=== PATIENT | male | born 1940 | race Caucasian/White ===

== ENCOUNTER 2016-06-27 20:57 | Inpatient (IN) | payer MEDICARE, OTHER ==
[~2016-06-27] VITALS: Ht 172.7 cm; Wt 59.0 kg
--- NOTE | ~2016-06-27 | O ---
[place], [place] OPERATIVE NOTE NAME: SUJEY ZAMBRANO SR UNIT #: [id number] ROOM: 427 DOCTOR: JODIE HOLLOWAY MD BIRTHDATE: [birth year] DOS: 06/29/2016 INDICATIONS: This is a 75-year-old patient who was presented with chief complaint of nausea, epigastric distress, abdominal pain. The patient with respiratory insufficiency, cough and cold symptomatology. PROCEDURE: Today's procedure part of investigation is panendoscopy plus biopsy plus photographic series. PREMEDICATION: Versed and Diprivan. SCOPE: Olympus forward-viewing gastroscope Q10 video. REPORT: After putting the patient in the left lateral position and after application of lubricant to the scope, the scope was introduced. Thereafter, under direct visualization, I advanced through the length of the esophagus without difficulty. Gastric pouch was entered. Antral ulceration was identified. Diffuse gastritis was seen. Duodenal bulb, second and third part within normal limits. The patient extubated, tolerated procedure well. IMPRESSION: Antral ulcer, gastritis, status post biopsy, small hiatal hernia. PLAN AND DISCUSSION: PPI therapy, soft diet. Follow up as outpatient for colonoscopy. JODIE HOLLOWAY MD CM:OPRECORD:OPERATIVE NOTE [id number] JODIE HOLLOWAY MD 06/29/16 0951 interface
[~2016-06-27 20:57] MED LIST: ADVAIR 250/501 EA INH; AMOXICILLIN500 MG PO; AMOXIL500 MG PO; AVPAK AZITHROM250 MG PO; AZITHROMYCIN250 MG PO; CARAFATE1 G1 PO; CIPRO250 MG PO; CLOTRIMAZOLE TR10 MG PO; DALI500T PO; DELTASONE10 MG PO; DUONEB 3 MG/3 ML3 M1 INH; ENSURE HIGH PR237 ML PO; FLOMAX0.4 MG PO; LYRICA100 M1 PO; MOBIC15 MG PO; MOTRIN800 MG PO; MULTIVITAMIN1 TA1 PO; MYCELEX VG; NORCO 5-325 TA1 EACH PO; PREDNISONE10 MG PO; PREDNISONE20 M1 PO; PRILOSEC40 M1 PO; PROAIR HFA0.09 MG/AC INH; PULMICORT RESP0.5 MG INH; ROBITUSSIN AC 110 ML PO; SYNTHROID25 MCG PO; ULTRAM50 MG PO; VITAMIN B121000 MC2 SL; ZOCOR40 MG PO; [UNRECOGNIZED DRUG - CODE] PO
[2016-06-27 21:31] VITALS: BP 126/67
[2016-06-27 22:09] LABS: BASO % 0.3 % (0.0-1.0); EOS % 0.3 % (1.0-4.0); HEMATOCRIT 36.9 % (42.0-52.0); HEMOGLOBIN 12.1 g/dl (14.0-18.0); IG # 0.1 10*3/uL (0.0-0.1); LYMPH # 1.9 10*3/uL (1.3-4.4); LYMPH % 12.5 % (27.0-41.0); MEAN CELL VOLUME 92.9 fl (80.0-94.0); MEAN CORPUSCULAR HGB 30.5 pg (27.0-31.0); MEAN CORPUSCULAR HGB CONC 32.8 g/dl (33.0-37.0); MEAN PLATELET VOLUME 9.1 fl (9.6-12.3); MONO # 0.9 10*3/uL (0.1-1.0); MONO % 5.7 % (3.0-9.0); NEUT # 12.1 10*3/uL (2.3-7.9); NEUT % 80.6 % (47.0-73.0); PLATELET COUNT AUTOMATED 468 10*3/uL (130-400); RED BLOOD COUNT 3.97 10*6/uL (4.50-5.90); RED CELL DISTRI WIDTH 16.3 % (0-14.5)
[2016-06-27 22:26] LABS: ALBUMIN 3.2 gm/dl (3.1-4.5); ALKALINE PHOSPHATASE 58 U/L (45-117); BILIRUBIN, TOTAL 0.3 mg/dl (0.2-1.0); BUN 17 mg/dl (7-24); CARBON DIOXIDE 32 mmol/L (21-32); CHLORIDE 101 mmol/L (98-107); EST GLOM FILT AFRICAN AMERICAN 53 ml/min; GLUCOSE 112 mg/dL (65-99); MAGNESIUM 2.6 mg/dL (1.5-2.1); POTASSIUM 3.9 mmol/L (3.5-5.1); SGOT/AST 15 IU/L (3-35); SGPT/ALT 19 U/L (12-78); SODIUM 143 mmol/L (136-145); TOTAL PROTEIN 7.3 gm/dL (6.4-8.2); TROPONIN I < 0.015 ng/ml (<0.045)
[2016-06-27 23:48] LABS: BILIRUBIN NEGATIVE (NEGATIVE); BLOOD 3+ (NEGATIVE); CLARITY SL CLOUDY (CLEAR); COLOR YELLOW (YELLOW); GLUCOSE NEGATIVE (NEGATIVE); KETONE NEGATIVE (NEGATIVE); LEUKO ESTERASE 1+ (NEGATIVE); NITRITE NEGATIVE (NEGATIVE); PH 5.5 (5.0-9.0); PROTEIN TRACE (NEGATIVE); SPECIFIC GRAVITY 1.015 (1.005-1.030); UROBILINOGEN 0.2 E.U./dl (0.2-1.0)
[2016-06-27 23:53] LABS: BACTERIA 2+; EPITHELIAL CELLS 0-2; RBC TNTC rbc/hpf (0-2); URINE REFLEX COMMENT YES (NO); WBC TNTC wbc/hpf (0-5)
[2016-06-28 01:04] VITALS: BP 130/60
[2016-06-28] MEDS ORDERED: NEXIUM40 MG PO (03:12)
[2016-06-28] MEDS ORDERED: PROAIR HFA8.5 GM INH (03:13)
[2016-06-28] MEDS ORDERED: SPIRIVA -- 3018 MCG INH (03:14)
[2016-06-28] MEDS ORDERED: VIT D (03:15)
[2016-06-28] MEDS ORDERED: OXYGEN NAS (03:16)
[2016-06-28 06:49] LABS: CKMB 0.7 ng/ml (0.5-3.6); CPK 42 U/L (39-308); TROPONIN I < 0.015 ng/ml (<0.045)
[2016-06-28 07:56] LABS: BASO # 0.1 10*3/uL (0.0-0.1); BASO % 0.4 % (0.0-1.0); EOS # 0.1 10*3/uL (0.0-0.4); EOS % 0.8 % (1.0-4.0); HEMATOCRIT 32.7 % (42.0-52.0); HEMOGLOBIN 10.6 g/dl (14.0-18.0); IG # 0.1 10*3/uL (0.0-0.1); LYMPH % 7.2 % (27.0-41.0); MEAN CELL VOLUME 94.5 fl (80.0-94.0); MEAN CORPUSCULAR HGB 30.6 pg (27.0-31.0); MEAN CORPUSCULAR HGB CONC 32.4 g/dl (33.0-37.0); MEAN PLATELET VOLUME 9.3 fl (9.6-12.3); MONO # 0.6 10*3/uL (0.1-1.0); MONO % 4.2 % (3.0-9.0); NEUT # 12.1 10*3/uL (2.3-7.9); NEUT % 86.7 % (47.0-73.0); PLATELET COUNT AUTOMATED 410 10*3/uL (130-400); RED BLOOD COUNT 3.46 10*6/uL (4.50-5.90); RED CELL DISTRI WIDTH 16.7 % (0-14.5); WHITE BLOOD COUNT 13.9 10*3/uL (4.8-10.8)
[2016-06-28 08:00] VITALS: BP 128/62
[2016-06-28 08:12] LABS: ALBUMIN 2.6 gm/dl (3.1-4.5); BILIRUBIN, TOTAL 0.2 mg/dl (0.2-1.0); POTASSIUM 3.9 mmol/L (3.5-5.1); TOTAL PROTEIN 6.1 gm/dL (6.4-8.2)
[2016-06-28 12:00] VITALS: BP 117/52
[2016-06-28 12:13] LABS: CPK 48 U/L (39-308)
[2016-06-28 12:14] LABS: CKMB 0.8 ng/ml (0.5-3.6)
[2016-06-28 12:15] LABS: TROPONIN I < 0.015 ng/ml (<0.045)
[2016-06-28 16:09] VITALS: BP 105/55
[2016-06-28 17:54] LABS: CKMB 1.1 ng/ml (0.5-3.6); CPK 53 U/L (39-308)
[2016-06-28 17:56] LABS: TROPONIN I < 0.015 ng/ml (<0.045)
[2016-06-28 19:52] VITALS: BP 109/51
[2016-06-29] VITALS (9 sets, daily range): BP systolic 126–143; BP diastolic 59–77
[2016-06-29 07:02] LABS: HEMATOCRIT 32.6 % (42.0-52.0); HEMOGLOBIN 10.3 g/dl (14.0-18.0); MEAN CELL VOLUME 96.7 fl (80.0-94.0); MEAN CORPUSCULAR HGB 30.6 pg (27.0-31.0); MEAN CORPUSCULAR HGB CONC 31.6 g/dl (33.0-37.0); MEAN PLATELET VOLUME 9.3 fl (9.6-12.3); PLATELET COUNT AUTOMATED 413 10*3/uL (130-400); RED BLOOD COUNT 3.37 10*6/uL (4.50-5.90); RED CELL DISTRI WIDTH 17.2 % (0-14.5); WHITE BLOOD COUNT 12.8 10*3/uL (4.8-10.8)
[2016-06-29 07:26] LABS: BURR CELLS FEW; LYMPHOCYTE # 0.3 10*3/uL (1.3-4.4); MONOCYTE # 0.3 10*3/uL (0.1-1.0); NEUTROPHIL # 12.3 10*3/uL (2.3-7.9); NEUTROPHILS 96 % (47-73); PLATELET SUFFICIENCY HIGH (NORMAL); TOTAL CELLS COUNTED 100 #CELLS
[2016-06-29 07:36] LABS: POTASSIUM 4.6 mmol/L (3.5-5.1); PROTHROMBIN TIME 10.1 SECONDS (9.0-12.4)
[2016-06-29 07:43] LABS: FREE T4 0.88 ng/dl (0.76-1.46); THYROID STIM HORMONE (HS) 0.532 uIU/ml (0.358-4.75)
[2016-06-29 08:30] LABS: FOLIC ACID 7.63 ng/mL (>5.38)
[2016-06-30] VITALS: BP 136/75
[2016-06-30 06:48] LABS: HEMATOCRIT 34.8 % (42.0-52.0); HEMOGLOBIN 11.3 g/dl (14.0-18.0); MEAN CORPUSCULAR HGB 30.3 pg (27.0-31.0); MEAN CORPUSCULAR HGB CONC 32.5 g/dl (33.0-37.0); MEAN PLATELET VOLUME 9.2 fl (9.6-12.3); PLATELET COUNT AUTOMATED 387 10*3/uL (130-400); RED BLOOD COUNT 3.73 10*6/uL (4.50-5.90); RED CELL DISTRI WIDTH 17.5 % (0-14.5); WHITE BLOOD COUNT 17.4 10*3/uL (4.8-10.8)
[2016-06-30 06:50] LABS: MEAN CELL VOLUME 93.3 fl (80.0-94.0)
[2016-06-30 07:11] LABS: LYMPHOCYTE # 0.3 10*3/uL (1.3-4.4); MONOCYTE # 0.2 10*3/uL (0.1-1.0); NEUTROPHIL # 16.9 10*3/uL (2.3-7.9); NEUTROPHILS 97 % (47-73); PLATELET SUFFICIENCY NORMAL (NORMAL); TOTAL CELLS COUNTED 100 #CELLS
[2016-06-30 07:12] LABS: ROULEAUX SLIGHT
[2016-06-30 07:16] LABS: POTASSIUM 4.1 mmol/L (3.5-5.1)
[2016-06-30 07:23] LABS: ALBUMIN 2.8 gm/dl (3.1-4.5); PHOSPHOROUS 2.6 mg/dL (2.5-4.9)
[2016-06-30 08:00] VITALS: BP 146/75
== END 2016-06-30 12:30 | disposition short-term general hospital (02) | DRG 871 ==
LOC: ED 20:57 → 4E 23:58 → EDHOLD 23:58 → 4E 06-28 00:18
PROVIDERS: Hospitalist; Internal Medicine; Internal Medicine Nephrology; Nurse Practitioner Family
PROC: 0DB68ZX Excision of Stomach, Via Natural or Artificial Opening Endoscopic, Diagnostic (ICD-10-PCS; principal; 2016-06-29)
DX: A41.9 Sepsis, unspecified organism (principal); N17.0 Acute kidney failure with tubular necrosis; E43 Unspecified severe protein-calorie malnutrition; Z99.81 Dependence on supplemental oxygen; E86.0 Dehydration; J44.1 Chronic obstructive pulmonary disease with (acute) exacerbation; N30.01 Acute cystitis with hematuria; Z68.1 Body mass index [BMI] 19.9 or less, adult; R65.20 Severe sepsis without septic shock; E83.41 Hypermagnesemia; D47.3 Essential (hemorrhagic) thrombocythemia; R33.9 Retention of urine, unspecified; K29.70 Gastritis, unspecified, without bleeding; N40.0 Benign prostatic hyperplasia without lower urinary tract symptoms; G89.29 Other chronic pain; K21.9 Gastro-esophageal reflux disease without esophagitis; E78.5 Hyperlipidemia, unspecified; E03.9 Hypothyroidism, unspecified; K25.9 Gastric ulcer, unspecified as acute or chronic, without hemorrhage or perforation; M54.9 Dorsalgia, unspecified; K44.9 Diaphragmatic hernia without obstruction or gangrene; Z87.891 Personal history of nicotine dependence; Z83.3 Family history of diabetes mellitus; Z82.49 Family history of ischemic heart disease and other diseases of the circulatory system; Z80.1 Family history of malignant neoplasm of trachea, bronchus and lung; Z79.899 Other long term (current) drug therapy

== ENCOUNTER 2016-08-25 20:22 | Inpatient (IN) | payer MEDICARE, OTHER ==
[~2016-08-25] VITALS: Ht 172.7 cm; Wt 45.1 kg
--- NOTE | ~2016-08-25 | PR ---
[place], [place] PROGRESS NOTE NAME: SUJEY ZAMBRANO SR UNIT #: [id number] ROOM: 401 DOCTOR: KIMBERLY LESTER MD,MAURA BIRTHDATE: [birth year] DOS: 09/02/2016 SUBJECTIVE: He has been noted without any acute complaints at this time, resting on his chair comfortably sitting. OBJECTIVE: VITAL SIGNS: Shows normal temperature, respiratory rate 20, heart rate 92, and blood pressure 127/53. Pulse oxygen saturation of the patient recorded as 95% saturation on 2 L nasal cannula. HEENT: No acute change. NECK: Supple. CARDIOVASCULAR SYSTEM: S1, S2 audible. LUNGS: Noted without any wheezing or crackles at the present time. ABDOMEN: Soft, nontender. LABORATORY DATA: CBC today: WBC count 19.9, hemoglobin 9.8, hematocrit 30.2. Platelet count was 529,000. The vancomycin trough level 18.9. Digoxin level 1.13. IMPRESSION: 1. The patient with resolving acute hypoxic respiratory failure, acute exacerbation of chronic obstructive pulmonary disease, progressively. 2. Resolving acute pneumonia with methicillin-resistant Staphylococcus aureus. 3. Leukocytosis. The patient was still noted. PLAN OF TREATMENT: Continuation of the bronchodilators, oxygen supplementation dose of steroids has been decreased to 40 mg daily. Monitoring leukocytosis. Continue physical therapy. penitentiary facility placement was recommended the patient prior to final home discharge. MAURA HARRIS MD CM:PNTRANS [phone] MAURA LESTER MD 09/02/162151 interface
--- NOTE | ~2016-08-25 | PR ---
[place], [place] PROGRESS NOTE NAME: SUJEY ZAMBRANO SR UNIT #: [id number] ROOM: [facility] DOCTOR: KIMBERLY LESTER MD,MAURA BIRTHDATE: [birth year] DOS: 08/28/2016 PULMONARY PROGRESS NOTE SUBJECTIVE: He has been comfortably resting, still noted with wheezing, coughing and chest congestion. The patient was not reported with any symptoms of chest pain or abdominal pain. Continue oxygen supplementation as well. Cough has been noted for this patient with only small amount of sputum expectoration. OBJECTIVE: VITAL SIGNS: For the patient which were recorded shows the temperature of the patient noted as normal. The respiratory rate of the patient recorded as 22, heart rate 88, blood pressure 150/80. Pulse oxygen saturation recorded on 3 L nasal cannula as 99%-96% saturation. HEENT: Examination shows head was atraumatic. Eyes nonicterus. NECK: Supple. CARDIOVASCULAR: S1, S2 audible. LUNGS: Showed diffuse expiratory wheezing with scattered crackles of the lung were still heard. ABDOMEN: Soft, nontender, bowel sounds present. LABORATORY DATA: CBC this morning, hemoglobin 7.1, hematocrit 22.2, WBC count normal, platelet count was normal. The BMP of patient this morning shows glucose 180, BUN 9, creatinine was 0.57. Sodium 146, potassium 3.3. AST, ALT were noted mildly increased and abnormal. Prealbumin noted as 11. IMPRESSION: 1. The patient with ongoing acute hypoxic respiratory failure. 2. Lactic acidosis of the patient was also noted. 3. Acute exacerbation of chronic obstructive pulmonary disease. 4. Methicillin-resistant Staphylococcus aureus pneumonia, the patient was also isolated with current sputum cultures as methicillin-resistant Staphylococcus aureus. 5. Overall debility of the patient and moderate to severe protein-calorie malnutritional status as well. PLAN OF TREATMENT: Optimize nutritional status. Antibiotic spectrum was changed based on the current culture results. We will continue vancomycin, discontinue other antibiotics today. Monitor chest x-ray closely. Possible consideration of bronchoscopy for the patient in the next couple of days as well. Usual care, other supportive therapy, plan of management. No changes in bronchodilators administration and steroids. Continue oxygen supplementation. [place], [place] PROGRESS NOTE NAME: SUJEY ZAMBRANO SR UNIT #: [id number] ROOM: [facility] DOCTOR: MAURA DUQUE MD BIRTHDATE: [birth year] MAURA HARRIS MD CM:PNTRANS [phone] MAURA LESTER MD 08/29/16 0407 interface
--- NOTE | ~2016-08-25 | PROC NOTE ---
[place], [place] PROCEDURE NOTE NAME: SUJEY ZAMBRANO SR UNIT #: [id number] ROOM: 401 DOCTOR: KIMBERLY LESTER MD,MAURA BIRTHDATE: [birth year] DOS: 08/30/2016 PROCEDURE: Fiberoptic bronchoscopy. PREOPERATIVE DIAGNOSIS: The patient with persistent coughing, chest congestion with ineffective sputum expectoration. POSTOPERATIVE DIAGNOSIS: Removal of multiple plugs in the mucus with findings of pneumonia. PROCEDURE DESCRIPTION: Informed consent obtained for the patient. The patient brought to the OR and placed in supine position. Conscious sedation administered by the Anesthesia Department. After achieving appropriate sedation, airway introduced into the mouth. Bronchoscope advanced into the airway into laryngeal area. Epiglottis and vocal cords were seen. Bronchoscope advanced into the vocal cord and tracheal lumen. Tracheal lumen noted with moderate amount of thick mucopurulent secretion, which was suctioned out at jennifer level. Jennifer noted sharp. Right upper, right middle, right lower, left upper, lingular lower lobe bronchi were all noted impacted with thick mucoid secretion with purulent secretion. All secretions suctioned out clear. Endobronchial tree were noted patent after that. No endobronchial obstructive lesions noted. Bronchial washings sent for the appropriate culture. Postoperative findings were discussed in detail with the patient and family members. MAURA HARRIS MD CM:PROCNOTE:PROCEDURE NOTE [id number] MAURA LESTER MD
--- NOTE | ~2016-08-25 | PR ---
[place], [place] PROGRESS NOTE NAME: SUJEY ZAMBRANO SR UNIT #: [id number] ROOM: 401 DOCTOR: KIMBERLY LESTER MD,MAURA BIRTHDATE: [birth year] DOS: 09/01/2016 PULMONARY PROGRESS NOTE SUBJECTIVE: He has been noted with significant reduction and improvement of the respiratory symptoms at this time after bronchoscopy. Coughing has been improving significantly. Denied symptoms of chest pain. Shortness of breath has been gradually resolving. OBJECTIVE: VITAL SIGNS: Showed normal temperature, respiratory rate 20, heart rate of 90, blood pressure 122/66. The pulse oxygen saturation of the patient noted on 2-1/2 liters nasal cannula 97% saturation. HEENT: Examination shows no acute change. NECK: Supple. CARDIOVASCULAR SYSTEM: S1, S2 audible. LUNGS: Noted without any wheezing or crackles at the present time. ABDOMEN: Soft, nontender. LABORATORY DATA: CMP today, glucose 187 with normal BUN and creatinine. Culture of the bronchial washing was noted as heavy growth of MRSA for this patient. CBC today: WBC count 17.2, hemoglobin 10.4, hematocrit 32.8, platelet count was recorded as 622,000. One view chest x-ray of the patient that was done yesterday for this patient shows changes of COPD for the patient with resolving acute pulmonary infiltration pneumonia in the lower lungs. IMPRESSION: 1. The patient with progressive resolution and improvement ____ the respiratory status with resolving acute pneumonia with methicillin-resistant Staphylococcus aureus. 2. Acute hypoxic respiratory failure, improving as well. 3. Severe debility, muscle deconditioning as well as the protein calorie malnutrition status. PLAN OF TREATMENT: Continue antibiotics for the patient, bronchodilators, oxygen supplementation and other therapies as in progress. Continue nutritional support for the patient and optimize accordingly. Reduce the dose of Solu-Medrol for the patient 40 mg b.i.d. ____ dose as well. Other supportive therapy, plan of management. Possible consideration may be considered for the alf facility placement because of the significant severe debility and continuation of antibiotic administration. Keep the patient off the Daliresp because of the weight loss, most likely associated with that. Other supportive plan of management and therapies. [place], [place] PROGRESS NOTE NAME: SUJEY ZAMBRANO SR UNIT #: [id number] ROOM: [facility] DOCTOR: MAURA DUQUE MD BIRTHDATE: [birth year] MAURA HARRIS MD CM:PNTRANS [phone] MAURA LESTER MD 09/02/16 0408 interface
--- NOTE | ~2016-08-25 | PR ---
[place], [place] PROGRESS NOTE NAME: JUAN MANUEL GOODRICHSUJEY Cachorro UNIT #: [id number] ROOM: 401 DOCTOR: JAZMINE PRESTON MD BIRTHDATE: [birth year] DOS: 08/31/2016 SUBJECTIVE: The patient was seen at his bedside with family in attendance today. He appears to be doing much better. He is eating with some appetite, and he denies any chest pain or dyspnea at rest. His cough has decreased. Review of his monitor shows that he remains in atrial fibrillation, but his heart rate is better controlled. Unfortunately, he remains on intravenous diltiazem. PHYSICAL EXAMINATION: VITAL SIGNS: Today, his pulse is 64 and irregularly irregular. Blood pressure is 118/60, he is afebrile. He weighs 45.1 kilograms with a body mass index is 15.1. NECK: Supple. He has no jugular distention. Carotids are full without bruits. CHEST: Shows that his breathing is unlabored. He had a few scattered crackles over his lower lungs, but no presacral edema or chest wall tenderness. HEART: An irregularly irregular rhythm. No murmurs or gallops are present. ABDOMEN: Soft and normoactive. EXTREMITIES: Showed no edema. IMPRESSION: 1. Multifocal bilateral pneumonia with severe sepsis -- improving. 2. Severe chronic obstructive pulmonary disease. 3. Bladder cancer with metastases. 4. Newly documented atrial fibrillation, probably triggered by his pneumonia in the setting of severe underlying lung disease. PLAN: We will again make efforts to wean him off of diltiazem intravenously and switch him to p.o. diltiazem. His CHADS-VASC score is 1, and therefore we will use antiplatelets therapies only to help prevent strokes. We thank the physicians of the hospitalist group for asking our advice regarding his care. [place], [place] PROGRESS NOTE NAME: JUAN MANUEL SUJEY UNIT #: [id number] ROOM: 401 DOCTOR: JAZMINE PRESTON MD BIRTHDATE: [birth year] JAZMINE PRESTON MD CM:PNTRANS [id number] JAZMINE PRESTON MD 09/01/16 0628 interface
--- NOTE | ~2016-08-25 | CON ---
[place], [place] REPORT OF CONSULTATION NAME[id number] UNIT #: [id number] ROOM: 401 DOCTOR: MAURA DUQUE MD BIRTHDATE: [birth year] DOS: 08/27/2016 PULMONARY CONSULTATION EVALUATION AND MANAGEMENT REASON FOR CONSULTATION: Assess the patient for acute pneumonia for this patient and other respiratory problems. HISTORY OF PRESENT ILLNESS: This is a 75-year-old white male who has been known with past history of bladder cancer, recently diagnosed metastatic cancer, probably originating from the prostate undergoing chemotherapy by his medical oncologist, Dr. Brizuela in [place], [place]. The patient developed acute respiratory symptoms of chest congestion and cough for the past couple of weeks. He was also noticing increased coughing for the patient without any sputum expectoration and chest tightness. The patient was seen in the Emergency Room recently in another hospital. The patient has been given prednisone tapering dose and some other medications. The patient's symptoms had not improved and noted progressive worsening. He presented to the Emergency Room of [place] and hospitalized on 08/26/2016 for further medical management of current progressive respiratory symptom. The patient was still noted with coughing noted partial improvement from yesterday. He has been reporting symptoms of continuous wheezing as well as shortness breath with minimal exertion. Denies any symptoms of hemoptysis. The patient reported symptoms of pain, which is described in the left lower anterior chest wall. The patient worsened with deep breathing. The pain was described mild to moderate patient without any radiation and described recently. REVIEW OF SYSTEMS: CONSTITUTIONAL: Fatigue and tiredness noted with patient not sure about symptoms of fever or chills. EYES: Denies any burning, redness, or tenderness. EARS, NOSE, THROAT SYMPTOMS: Denies sore throat, hoarseness, otalgia, postnasal drainage. CARDIOVASCULAR: Denies anginal pain, edema or pain of lower extremities or palpitations. GASTROINTESTINAL: Denies dysphagia, nausea, vomiting, diarrhea, noted to decreased appetite for this patient as well as the weight loss of about 7 pounds in the past few weeks. GENITOURINARY SYMPTOMS: Denies dysuria or hematuria. SKIN: Denies lesions, rashes or ulcers. MUSCULOSKELETAL: Pain is described in different points of the patient, which is chronic without any acute flareup at this time. Denies any joint deformities. CENTRAL NERVOUS SYSTEM: Denies dizziness, headache or diplopia. Noted generalized weakness and fatigue. Remaining systems were reviewed with the patient, they were noted all negative. PAST MEDICAL HISTORY: Has been known with history of: 1. COPD. 2. History of bladder cancer. 3. Metastatic cancer of the prostate, possibly. [place], [place] REPORT OF CONSULTATION NAME: SUJEY ZAMBRANO SR UNIT #: [id number] ROOM: [facility] DOCTOR: MAURA DUQUE MD BIRTHDATE: [birth year] 4. Recent abnormal weight loss. 5. Hyperlipidemia. 6. Hypothyroidism. 7. Past tobacco use. 8. History of gastroesophageal reflux. PAST SURGICAL HISTORY: Noted. 1. TURP. 2. Surgery of the bladder cancer 5 years ago. SOCIAL HISTORY: The patient stated that he is , has 7 children. Smoking started at age of [age] years old pack of cigarettes per day until 2011. Denies any history of alcohol use or any illicit drug use. Denies rather alcohol dependence or illicit drug use. The patient drinks about 2-3 beers a day. FAMILY HISTORY: The patient's both parents have been . Mother from complication of lung cancer. Father of complications of myocardial infarction and diabetes mellitus. HOME MEDICATIONS: Listed as use of Pulmicort Respules, nebulized albuterol sulfate, ProAir HFA inhaler, calcium carbonate, vitamin D, vitamin B12, Nexium, fentanyl patches 50 mcg, Advair 250/50, levothyroxine, Remeron, multivitamin, OxyContin, oxygen supplementation bedtime 2 liters, Lyrica, ____, simvastatin, Carafate, Flomax, Spiriva, recent prescription of prednisone 30 mg b.i.d. and Compazine p.r.n. use. DRUG ALLERGIES: Reported no known drug allergies. MEDICATIONS: Current administered medications were noted use of Mucinex, vitamin D, ____, Protonix, levothyroxine, Remeron, simvastatin, Flomax, Carafate, albuterol sulfate, Dulera, Compazine, multivitamin, Lovenox for DVT prophylaxis, Levaquin, vancomycin, Zosyn, albumin, and other p.r.n. medications administration. PHYSICAL EXAMINATION: GENERAL: A [id number] white male currently noted to be sitting on the bed, using oxygen supplementation nasal cannula with it appearing cachexia. Height of 5 feet 8 inches, weight of 99 pounds, BMI 15.1. VITAL SIGNS: For the patient, which has been recorded showed the temperature noted as normal, respiratory rate 18-22, heart rate of 93-131 on admission, blood pressure 120/46-117/55. Pulse oxygen saturation noted on 2 liters nasal cannula 97% saturation noted. Oxygen saturation noted at 84% on room air on admission. HEENT: Loss of muscle mastication. Neck was supple. Head was atraumatic. Eyes nonicterus. Oral mucosa was moist. CARDIOVASCULAR: S1, S2 audible. LUNGS: Diffuse expiratory wheezing, scattered crackles of the lung mid to lower portion of the lungs bilaterally. ABDOMEN: Soft, flat, nontender. CENTRAL NERVOUS SYSTEM: Loss of muscle mass for the patient noted without any [place], [place] REPORT OF CONSULTATION NAME: SUJEY ZAMBRANO SR UNIT #: [id number] ROOM: [facility] DOCTOR[facility] BIR[facility] [birth year] focal deficits. Cranial nerves 2-12 intact. MUSCULOSKELETAL: Showed no deformities. SKIN: Showed no lesions or rashes. LABORATORY DATA: The BMP that was done just on admission glucose 116, BUN and creatinine were normal. CBC 08/25/2016 WBC count 3.4, hemoglobin 8.6, hematocrit ____, platelet count 490,000. The lactic acid was noted initially 4.2. Follow up lactic acid was done as 2.5 on the . CBC on , WBC count normal at 8.6, hemoglobin 8, hematocrit 25.5, platelet count 533,000. PT/PTT 08/24, and was normal. CMP: Glucose 231. The patient's BUN and creatinine normal on 08/26. CBC this morning, hemoglobin 7.1, hematocrit 22.0, platelet count 508,000, WBC count were normal. The platelet count for the patient was recorded as 508,000. CMP of the patient this morning, BUN 11, creatinine 0.47, glucose 141. The phosphorus noted 1.7. AST 64, ALT 113. Albumin 2.5. Calcium 6.4 uncorrected with the albumin. The culture of the sputum for the patient shows moderate growth of gram-positive cocci, many white blood cells with moderate epithelial cells, moderate gram-positive cocci in pairs and chains was noted. The cultures of the blood for this patient on the to assess the patient shows no bacterial growth. Troponin for patient on admission and on 3 sets were all noted as normal. The chest x-ray that was done on this admission on 08/25/2016 was noted with hyperinflation with some patchy infiltration of the lungs were noted. CT of the chest that was done was personally reviewed shows a large area of consolidation with associated small pleural fluid in the procedure subsegment of the left lower lobe was noted. Other patchy infiltration noted in the superior subsegment of the right lower lobe as well as in the left upper lobe and other infiltration noted posterior subsegment of the left upper lobe as well. Changes of centrilobular emphysema was also noted. There was no evidence of pulmonary embolism. The mediastinal windows for this patient were reviewed for this patient as well and does not show any significant lymphadenopathy in the mediastinum except mild enlargement of left side lymph node noted could be reactive. Another area of infiltration and consolidation noted in the medial subsegment of the right lower lobe. IMPRESSION: 1. The patient who had been currently admitted to the hospital with known history of metastatic cancer, most likely originating from the bladder for the patient confirmation was not clearly known. Currently, has reported and admitted to the hospital, multilobar pneumonia, area of consolidation with possibility of aspiration to be considered because of the current occasion noted. CT scan of the chest as a possibility with gram-positive cocci. Gram-positive cocci isolation has been noted with sputum differential would be considered as MRSA streptococcal pneumonia or enterococcus species. 2. Progressive anemia which has been noted without any active bleeding most likely resulting from intravenous fluid supplementation resulting in volume diffusion. 3. The patient with acute exacerbation of chronic obstructive pulmonary disease. 4. Acute hypoxic respiratory failure secondary to the above. 5. History of past nicotine use as well. 6. A very small left-sided pleural fluid was also noted related to acute [place], [place] REPORT OF CONSULTATION NAME: SUJEY ZAMBRANO SR UNIT #: [id number] ROOM: [facility] DOCTOR: KIMBERLY LESTER MD,MAURA AREVALOTE: 42 bacterial pneumonia on the left side. 7. Abnormal weight loss and may be related to underlying metastatic malignancy. PLAN OF TREATMENT: 1. Monitor culture results. Continue current broad spectrum intravenous antibiotics. History of suspected based on the culture results if necessary, consider bronchoscopy. Initial workup for the patient for aspiration. 2. Severe protein-calorie malnutrition was also suspected for this patient as well. 3. Significant weight loss ____ well known side effect. 4. The ____ has been discontinued as well. Follow up chest x-ray closely. Continuation of the other treatment therapy, plan of management and care. Usual treatments. Thanks for allowing me to participate in the care of this patient. MAURA HARRIS MD CM:CONSTR:REPORT OF CONSULTATION 1456 08/28/16 1301 interface
--- NOTE | ~2016-08-25 | PR ---
[place], [place] PROGRESS NOTE NAME: SUJEY ZAMBRANO SR [facility] [id number] UNIT #: [id number] ROOM: 401 DOCTOR: JAZMINE PRESTON MD BIRTHDATE: [birth year] DOS: 09/01/2016 CARDIOLOGY PROGRESS NOTE SUBJECTIVE: The patient was seen at his bedside today with multiple family members in attendance. He continues to have periods of atrial fibrillation with rapid ventricular response. He seems more tired today, but otherwise seems clinically stable. PHYSICAL EXAMINATION: VITAL SIGNS: His pulse is 100 and irregularly irregular. Blood pressure is 118/60. He is afebrile. NECK: Supple. He has no jugular distention. Carotids are full. LUNGS: Respirations are unlabored. He does have bilateral crackles. HEART: Has an irregularly irregular rhythm. He has no murmurs or gallops. ABDOMEN: Benign. EXTREMITIES: Showed no edema. As noted previously, I reviewed his echocardiogram on 08/28/2016. It showed normal left ventricular size, thickness, wall motion and systolic function with an ejection fraction of 70%. Left ventricular filling pattern was normal for his age. The right atrium and left atrium were both moderately dilated. He did have Doppler evidence for mild pulmonary hypertension. Today his hemoglobin is 10.4, white count is 17,200, platelet count is 620,000. Sodium is 145, potassium 4.0, BUN 24, creatinine 0.75. I think that as long as he has an active infection, his heart rate will be difficult to control. I will increase his diltiazem by mouth today and continue his IV diltiazem as needed to control his heart rate. We will continue to make adjustments on a daily basis. We thank the hospitalist group for asking our advice regarding his care. JAZMINE PRESTON MD CM:PNTRANS [phone] JAZMINE PRESTON MD 09/02/16 0506 interface
--- NOTE | ~2016-08-25 | PR ---
[place], [place] PROGRESS NOTE NAME: SUJEY ZAMBRANO SR UNIT #: [id number] ROOM: 401 DOCTOR: MAURA DUQUE MD BIRTHDATE: [birth year] DOS: 08/30/2016 PULMONARY PROGRESS NOTE SUBJECTIVE: He has been n.p.o. past midnight for bronchoscopy. The patient was continued on previous antibiotics as well. The coughing, chest congestion of the patient remains the same without any changes as of yesterday's exam. OBJECTIVE: VITAL SIGNS: Showed normal temperature, respiratory rate of 16, heart rate of 128 earlier, currently noted 63. The temperature of the patient noted as normal. HEENT: Examination shows head was atraumatic. Eyes nonicterus. NECK: Supple. CARDIOVASCULAR SYSTEM: S1, S2 audible. LUNGS: Noted with moderate decreased breath sounds of the patient with wheezing for the patient was noted, scattered crackles of the lungs bilaterally. ABDOMEN: Soft, nontender. LABORATORY DATA: CMP 08/30/2016, BUN of 19, creatinine was normal, glucose 172. CBC of the patient of 08/30/2016, WBC count 11.5, hemoglobin 7.9, hematocrit 24.6, platelet count 668,000. Troponin for the patient noted as normal. PT/PTT yesterday was noted as normal. IMPRESSION: 1. The patient who has been currently treated in the hospital was noted with ongoing acute bilateral pneumonia for this patient with persistent chest congestion, coughing not resolving with current maximal medical therapy. 2. Acute hypoxic respiratory failure as well. 3. Methicillin-resistant Staphylococcus aureus for this patient's pneumonia as well. PLAN OF TREATMENT: Continue with the current plan of management. Continue the antibiotics based on the current culture results of MRSA. If any changes, modification of treatment necessary after bronchoscopy ordered accordingly. Anemia has been already addressed by the primary care attending blood transfusion. [place], [place] PROGRESS NOTE NAME: SUJEY ZAMBRANO SR UNIT #: [id number] ROOM: 401 DOCTOR: MAURA DUQUE MD BIRTHDATE: [birth year] MAURA HARRIS MD CM:PNTRANS [phone] MAURA LESTER MD 08/31/16 0605 interface
--- NOTE | ~2016-08-25 | PR ---
[place], [place] PROGRESS NOTE NAME: SUJEY ZAMBRANO SR UNIT #: [id number] ROOM: 401 DOCTOR: MAURA DUQUE MD BIRTHDATE: [birth year] DOS: 09/04/2016 PULMONARY PROGRESS NOTE SUBJECTIVE: He has been still noted with some cough without any sputum expectoration. Denies symptoms of chest pain. Denies any wheezing. Physical therapy has been continued for this patient. OBJECTIVE: VITAL SIGNS: For the patient which were recorded shows the temperature of the patient recorded as normal. The respiratory rate of the patient recorded as 18, heart rate of 96. The blood pressure was recorded at 123/96. Pulse oxygen saturation with nasal cannula for the patient was noted as 96% saturation on 2 L nasal cannula. HEENT: Examination shows no acute change. NECK: Supple. CARDIOVASCULAR: S1, S2 audible. LUNGS: The patient was noted without any wheeze or crackles at this time. Breaths are noted mild to moderately decreased bilaterally. ABDOMEN: Soft, nontender. IMPRESSION: 1. The patient who has been currently noted with acute methicillin-resistant Staphylococcus aureus pneumonia for this patient with acute hypoxic respiratory failure with progressive resolution and improvement in the respiratory symptoms of the patient has been continued. The pneumonia has been improving clinically and radiologically. 2. Overall significant debility for this patient secondary to current acute illness was noted as well. PLAN OF TREATMENT: No changes from the pulmonary standpoint. Discharge planning for this patient to the home setting and/or penitentiary facility is still pending. Other supportive plan and management to be continued. No other change in treatment to be done. Once the patient gets discharged, he will be advised about followup in the office. [place], [place] PROGRESS NOTE NAME: JUAN MANUEL SRSUJEY Cachorro UNIT #: [id number] ROOM: 401 DOCTOR: MAURA DUQUE MD BIRTHDATE: [birth year] MAURA HARRIS MD CM:PNTRANS [phone] MAURA LESTER MD 09/04/162233 interface
--- NOTE | ~2016-08-25 | PR ---
[place], [place] PROGRESS NOTE NAME: [id number] #: [id number] ROOM: 401 DOCTOR: KIMBERLY LESTER MD,MAURA BIRTHDATE: [birth year] DOS: 09/03/2016 SUBJECTIVE: He has been comfortably resting on his bed. The patient using oxygen supplementation gradual reduction and improvement in the respiratory symptoms. The patient has been noted. He has not been noted any ongoing acute complaints at this time. OBJECTIVE: VITAL SIGNS: Which were recorded showed normal temperature, respiratory rate 20, heart rate 101; blood pressure 141/67, pulse ox saturation was noted at 97% on 2 L nasal cannula. HEENT: Examination shows no acute change. NECK: Supple. CARDIOVASCULAR: S1, S2 audible. LUNGS: Noted [id number] decreased breath sounds bilaterally without any wheezing or crackles. ABDOMEN: Soft, nontender. IMPRESSION: 1. The patient with resolving acute exacerbation of chronic obstructive pulmonary disease with acute tracheobronchitis as well as MRSA pneumonia. 2. The patient with atrial fibrillation was noted at this time as well. PLAN OF TREATMENT: No changes from the pulmonary standpoint. Continue the patient's current therapy, plan of management at this time. Bronchodilators, oxygen supplementation and other treatment as previously in progress. Usual care. MAURA HARRIS MD CM:PNTRANS [phone] MAURA LESTER MD 09/03/16 1032 interface
--- NOTE | ~2016-08-25 | PR ---
[place], [place] PROGRESS NOTE NAME: SUJEY ZAMBRANO SR UNIT #: [id number] ROOM: 401 DOCTOR: MAURA DUQUE MD BIRTHDATE: [birth year] DOS: 08/31/2016 SUBJECTIVE: He has been sitting on the chair. The patient continues to show reduction and improvement of respiratory symptom. Coughing has improved significantly. Shortness of breath resolving. There were symptoms of further chest congestion. There were no symptoms of chest pain. OBJECTIVE: VITAL SIGNS: For the patient which was recorded shows the temperature noted normal. The respiratory rate of the patient recorded as 20, heart rate 92, blood pressure 127/53. The pulse oxygen saturation for the patient noted on 4 liters nasal cannula 98% saturation. HEENT: Shows no acute change. NECK: Supple. CARDIOVASCULAR SYSTEM: S1, S2 audible. LUNGS: The patient noted without any wheezing or crackles. At this time, breath sounds noted mildly diminished bilaterally. ABDOMEN: Soft, nontender. LABORATORY DATA: CBC this morning, WBC count 19.9, hemoglobin 9.9, hematocrit 30.2, platelet count was noted as 529,000. The vancomycin trough level is 18.9. Digoxin level 1.13, which is therapeutic. IMPRESSION: 1. The patient with resolving acute bilateral bacterial pneumonia for the patient current antibiotic administration. 2. Improving acute exacerbation of chronic obstructive pulmonary disease. 3. Improving acute hypercapnic and hypoxic respiratory failure. 4. History of nicotine abuse. PLAN OF TREATMENT: No change in the plan of management. Continue the patient's current therapy, plan of care as previously. Discharge planning has been started the patient for possible discharge in the home settings. In the meantime, continue steroids, bronchodilators, antibiotics for the MRSA pneumonia. The respiratory status has been resolving and improving current medical treatments. Other supportive therapy, plan of management and care. Usual therapies. [place], [place] PROGRESS NOTE NAME: SUJEY ZAMBRANO SR UNIT #: [id number] ROOM: 401 DOCTOR: MAURA DUQUE MD BIRTHDATE: [birth year] MAURA HARRIS MD CM:CRYSTALTRANS [phone] MAURA LESTER MD 09/04/16 1515 interface
--- NOTE | ~2016-08-25 | PR ---
[place], [place] PROGRESS NOTE NAME: SUJEY ZAMBRANO SR UNIT #: [id number] ROOM: [facility] DOCTOR: JAZMINE PRESTON MD BIRTHDATE: [birth year] DOS: 08/29/2016 HISTORY OF PRESENT ILLNESS: The patient was seen at his bedside today, 08/29/2016, for followup of his newly documented paroxysmal atrial fibrillation. Currently, he is in pain in his lower back. Review of his monitor shows that he has been in atrial fibrillation and flutter this morning again. He denies any change in his breathing and denies any palpitations. PHYSICAL EXAMINATION: VITAL SIGNS: Today, his pulse is 135 and irregularly irregular. Blood pressure is 103/70. He is afebrile. He weighs 45.1 kilograms with a body mass index of 15.1. NECK: Supple. He has no jugular distention. Carotids are full without bruits. LUNGS: Respirations are slightly labored. He did not have any coughing while I was in the room, his does have scattered crackles over both lungs, especially at the bases. HEART: Irregularly irregular rapid rhythm. No murmurs or gallops are present. ABDOMEN: Soft. EXTREMITIES: Showed no edema. LABORATORY DATA: As noted yesterday, his echocardiogram shows normal left ventricular size, wall thickness, regional wall motion and systolic function with an ejection fraction of 70%, diastolic pattern is normal for his age. He does have evidence for mild pulmonary hypertension with an estimated right ventricular systolic pressure between 45 and 50 mmHg. There is a small pericardial effusion and evidence for a left pleural effusion as well. The IVC was dilated consistent with elevated right atrial pressures. IMPRESSION: 1. Multifocal bilateral pneumonia with severe sepsis. 2. Severe chronic obstructive pulmonary disease. 3. Bladder cancer with metastases. 4. Newly documented atrial fibrillation, most likely this was triggered by his pneumonia in the setting of his severe disease. PLAN: Since the patient has had recurrent atrial fibrillation, we will start him on daily doses of diltiazem. His CHADS-VASC score remains 1, so we will continue antiplatelet therapies only. I thank his physicians for asking our advice regarding his care. [place], [place] PROGRESS NOTE NAME: SUJEY ZAMBRANO SR UNIT #: [id number] ROOM: 401 DOCTOR: JAZMINE PRESTON MD BIRTHDATE: [birth year] JAZMINE PRESTON MD CM:PNTRANS [phone] JAZMINE PRESTON MD 08/29/16 2141 interface
--- NOTE | ~2016-08-25 | PR ---
[place], [place] PROGRESS NOTE NAME: [id number] #: [id number] ROOM: 401 DOCTOR: MAURA DUQUE MD BIRTHDATE: [birth year] DOS: 08/29/2016 PULMONARY PROGRESS NOTE SUBJECTIVE: He has been still noted with significant chest congestion and coughing. He has not been able to expectorate much sputum. Shortness breath for the patient noted with wheezing intermittently as well. OBJECTIVE: VITAL SIGNS: For the patient which was recorded showed the temperature of the patient recorded as normal. The respiratory rate 20, heart rate of 56 this morning, blood pressure 103/70. HEENT: Examination shows no new change. NECK: Supple. CARDIOVASCULAR: S1, S2 is audible. LUNGS: Noted with moderate expiratory wheezing with crackles and decreased breath sounds in the lower portion of the lungs. ABDOMEN: Soft, nontender. LABORATORY DATA: Chest x-ray of the patient that was done this morning 2-view that I ordered for this patient was reviewed, shows improvement in aeration of the lungs was noted; however, the infiltration still noted in the left mid and lower lungs for the patient. Small right lower lobe infiltration noted. Pulmonary venous congestion marking noted, small left pleural fluid was visible. Vancomycin trough level was noted as 14.0, which is in therapeutic range. CMP of the patient of 08/29/2016 shows BUN normal, creatinine was normal, glucose 164. ALT of 86. CBC for the patient of 08/29/2016, WBC count 11.1, hemoglobin 8.1, hematocrit 26.2, platelet count of 655,000. IMPRESSION: 1. The patient with bilateral pulmonary infiltration was noted with pleural fluid. 2. Mildly abnormal liver function test as well. 3. Persistent symptoms of chest congestion and nonproductive cough as well. 4. Anemia as well. 5. Thrombocytosis. PLAN OF TREATMENT: Continue current antibiotics, oxygen supplementation, bronchodilators. The bronchoscopy was suggested for the patient for the reason of persistent nonproductive cough for the patient and also assess the acute pneumonia as well. The patient agreed for the consent and the procedure. The consent was obtained. The consent was also discussed with one of the patient's daughter who was present in the room with the patient. Both were agreeable for that. Procedure will be done in the morning. No other change in treatment otherwise will be needed. [place], [place] PROGRESS NOTE NAME: SUJEY ZAMBRANO SR UNIT #: [id number] ROOM: [facility] DOCTOR: MAURA DUQUE MD BIRTHDATE: [birth year] MAURA HARRIS MD CM:DELANO [id number] MAURA LESTER MD 08/30/16 0429 interface
[~2016-08-25 20:22] MED LIST changes: +NEXIUM40 MG PO; +OXYGEN NAS; +PROAIR HFA8.5 GM INH; +SPIRIVA -- 3018 MCG INH; +VIT D
[2016-08-25 20:27] VITALS: BP 99/46
[2016-08-25] MEDS ORDERED: MOBIC15 MG PO (20:37)
[2016-08-25] MEDS ORDERED: DURAGESIC 50 M50 MCG TD (20:42)
[2016-08-25] MEDS ORDERED: OXYCODONE HCL10 M1 PO (20:42)
[2016-08-25] MEDS ORDERED: REMERON15 M2 PO (20:42)
[2016-08-25] MEDS ORDERED: PREDNISONE20 M1 PO (20:43)
[2016-08-25 20:52] LABS: HEMOGLOBIN 8.6 g/dl (14.0-18.0); MEAN CELL VOLUME 97.8 fl (80.0-94.0); MEAN CORPUSCULAR HGB 31.2 pg (27.0-31.0); MEAN CORPUSCULAR HGB CONC 31.9 g/dl (33.0-37.0); MEAN PLATELET VOLUME 9.7 fl (9.6-12.3); NUCLEATED RED BLOOD CELL 0.6 % (0.0-0.0); PLATELET COUNT AUTOMATED 490 10*3/uL (130-400); RED BLOOD COUNT 2.76 10*6/uL (4.50-5.90); RED CELL DISTRI WIDTH 15.1 % (0-14.5); WHITE BLOOD COUNT 3.4 10*3/uL (4.8-10.8)
[2016-08-25 21:05] LABS: BUN 17 mg/dl (7-24); CARBON DIOXIDE 26 mmol/L (21-32); CHLORIDE 104 mmol/L (98-107); EST GLOM FILT AFRICAN AMERICAN > 60 ml/min; GLUCOSE 169 mg/dL (65-99); MAGNESIUM 2.2 mg/dL (1.5-2.1); SODIUM 140 mmol/L (136-145)
[2016-08-25 21:11] VITALS: BP 108/52
[2016-08-25 21:17] LABS: LYMPHOCYTE # 0.5 10*3/uL (1.3-4.4); METAMYELOCYTES 4 % (0-0); MONOCYTE # 0.1 10*3/uL (0.1-1.0); NEUTROPHIL # 2.7 10*3/uL (2.3-7.9); NEUTROPHILS 78 % (47-73); POLYCHROMASIA SLIGHT; ROULEAUX SLIGHT; TOTAL CELLS COUNTED 100 #CELLS
[2016-08-25 21:18] LABS: PLATELET SUFFICIENCY NORMAL (NORMAL)
[2016-08-25 22:30] VITALS: BP 105/49
[2016-08-25 22:45] VITALS: BP 102/50
[2016-08-25 22:50] LABS: LA>2 REFLEX 2 HR DRAW NOW
[2016-08-25 23:16] LABS: LA>2 RFLX FOLLOW UP AT 2 HRS 2.9 mmol/L (0.4-2.0)
[2016-08-25 23:17] VITALS: BP 100/52
[2016-08-26] VITALS (7 sets, daily range): BP systolic 102–120; BP diastolic 50–60
[2016-08-26 01:06] LABS: LA>2 REFLEX 4 HR DRAW NOW
[2016-08-26 06:08] LABS: HEMATOCRIT 25.5 % (42.0-52.0); MEAN CELL VOLUME 96.2 fl (80.0-94.0); MEAN CORPUSCULAR HGB 30.2 pg (27.0-31.0); MEAN CORPUSCULAR HGB CONC 31.4 g/dl (33.0-37.0); MEAN PLATELET VOLUME 10.2 fl (9.6-12.3); PLATELET COUNT AUTOMATED 533 10*3/uL (130-400); RED BLOOD COUNT 2.65 10*6/uL (4.50-5.90); RED CELL DISTRI WIDTH 15.1 % (0-14.5); WHITE BLOOD COUNT 8.6 10*3/uL (4.8-10.8)
[2016-08-26 06:32] LABS: INTERNATIONAL NORM RATIO 1.2 (2.0-3.5); PROTHROMBIN TIME 12.3 SECONDS (9.0-12.4)
[2016-08-26 06:33] LABS: ALBUMIN 1.9 gm/dl (3.1-4.5); ALKALINE PHOSPHATASE 158 U/L (45-117); BILIRUBIN, TOTAL 0.2 mg/dl (0.2-1.0); BUN 13 mg/dl (7-24); CARBON DIOXIDE 23 mmol/L (21-32); CHLORIDE 107 mmol/L (98-107); CHOLESTEROL 97 mg/dL (<200); EST GLOM FILT AFRICAN AMERICAN > 60 ml/min; FREE T4 1.04 ng/dl (0.76-1.46); GLUCOSE 261 mg/dL (65-99); HDL CHOLESTEROL 57 mg/dl (40-60); LDL CHOLESTEROL 27 mg/dL (9-159); LYMPHOCYTE # 0.3 10*3/uL (1.3-4.4); METAMYELOCYTES 2 % (0-0); MONOCYTE # 0.3 10*3/uL (0.1-1.0); NEUTROPHIL # 7.9 10*3/uL (2.3-7.9); NEUTROPHILS 92 % (47-73); POTASSIUM 3.7 mmol/L (3.5-5.1); SGOT/AST 157 IU/L (3-35); SGPT/ALT 154 U/L (12-78); SODIUM 140 mmol/L (136-145); TOTAL CELLS COUNTED 100 #CELLS; TOTAL PROTEIN 6.2 gm/dL (6.4-8.2); TRIGLYCERIDES 63 mg/dl (<150); VLDL CHOLESTEROL 13 mg/dL (6-40)
[2016-08-26 06:34] LABS: PLATELET SUFFICIENCY HIGH (NORMAL); POLYCHROMASIA SLIGHT; TOXIC GRANULATION MODERATE
[2016-08-26 06:38] LABS: THYROID STIM HORMONE (HS) 0.518 uIU/ml (0.358-4.75)
[2016-08-26 07:24] LABS: HEMOGLOBIN A1c 6.8 % (4.8-5.6)
[2016-08-26 07:35] LABS: VITAMIN D, 25-HYDROXY 17.4 ng/mL (30-100)
[2016-08-26 07:36] LABS: FOLIC ACID 5.95 ng/mL (>5.38)
[2016-08-26 07:55] LABS: LA>2 REFLEX 2 HR DRAW NOW
[2016-08-26 08:17] LABS: LA>2 RFLX FOLLOW UP AT 2 HRS 2.5 mmol/L (0.4-2.0)
[2016-08-26] MEDS ORDERED: VITAMIN B121000 MC1 PO (09:10)
[2016-08-26] MEDS ORDERED: CALCIUM600 M2 PO (09:12)
[2016-08-26] MEDS ORDERED: VITAMIN D1000 IU PO (09:12)
[2016-08-26] MEDS ORDERED: PROCHLORPERAZIN10 M1 PO (09:14)
[2016-08-26 10:07] LABS: LA>2 REFLEX 4 HR DRAW NOW
[2016-08-26 14:29] LABS: LA>2 REFLEX 2 HR DRAW NOW
[2016-08-26 15:14] LABS: LA>2 RFLX FOLLOW UP AT 2 HRS 2.5 mmol/L (0.4-2.0)
[2016-08-26 17:07] LABS: LA>2 REFLEX 4 HR DRAW NOW
[2016-08-27] VITALS: BP 122/46
[2016-08-27 07:04] LABS: HEMOGLOBIN 7.1 g/dl (14.0-18.0); MEAN CELL VOLUME 96.5 fl (80.0-94.0); MEAN CORPUSCULAR HGB 31.1 pg (27.0-31.0); MEAN CORPUSCULAR HGB CONC 32.3 g/dl (33.0-37.0); MEAN PLATELET VOLUME 10.3 fl (9.6-12.3); NUCLEATED RED BLOOD CELL 0.3 % (0.0-0.0); PLATELET COUNT AUTOMATED 508 10*3/uL (130-400); RED BLOOD COUNT 2.28 10*6/uL (4.50-5.90); RED CELL DISTRI WIDTH 15.5 % (0-14.5); WHITE BLOOD COUNT 9.3 10*3/uL (4.8-10.8)
[2016-08-27 07:17] LABS: ALBUMIN 2.5 gm/dl (3.1-4.5); ALKALINE PHOSPHATASE 144 U/L (45-117); BILIRUBIN, TOTAL 0.2 mg/dl (0.2-1.0); BUN 11 mg/dl (7-24); CARBON DIOXIDE 27 mmol/L (21-32); CHLORIDE 112 mmol/L (98-107); EST GLOM FILT AFRICAN AMERICAN > 60 ml/min; GLUCOSE 141 mg/dL (65-99); MAGNESIUM 2.1 mg/dL (1.5-2.1); PHOSPHOROUS 1.7 mg/dL (2.5-4.9); POTASSIUM 3.5 mmol/L (3.5-5.1); SGOT/AST 64 IU/L (3-35); SGPT/ALT 113 U/L (12-78); SODIUM 145 mmol/L (136-145); TOTAL PROTEIN 6.4 gm/dL (6.4-8.2)
[2016-08-27 07:34] LABS: LYMPHOCYTE # 0.7 10*3/uL (1.3-4.4); METAMYELOCYTES 1 % (0-0); MONOCYTE # 0.8 10*3/uL (0.1-1.0); MYELOCYTES 2 % (0-0); NEUTROPHIL # 7.4 10*3/uL (2.3-7.9); NEUTROPHILS 80 % (47-73); PLATELET SUFFICIENCY HIGH (NORMAL); POLYCHROMASIA SLIGHT; PROMYELOCYTES 1 % (0-0); TOTAL CELLS COUNTED 100 #CELLS
[2016-08-27 08:00] VITALS: BP 145/73
[2016-08-27 11:57] VITALS: BP 128/68
[2016-08-27 15:32] LABS: ABG BASE EXCESS -1.2 mmol/L (-2.0-2.0); ABG CO2 CONTENT 23.3 mmol/L (23-27); ABG HCO3 22.3 mmol/l (22-26); ABG TEMPERATURE 98.1 F (98.0-99.0); ARTERIAL BLOOD GAS PH 7.443 (7.35-7.45); ARTERIAL BLOOD GAS PO2 90.5 mmHg (80-90)
[2016-08-27 16:00] VITALS: BP 139/71
[2016-08-27 20:00] VITALS: BP 124/71; BP 137/71
[2016-08-28] VITALS: BP 126/64
[2016-08-28 04:00] VITALS: BP 120/60
[2016-08-28 06:02] LABS: HEMATOCRIT 22.2 % (42.0-52.0); HEMOGLOBIN 7.1 g/dl (14.0-18.0); MEAN CELL VOLUME 96.1 fl (80.0-94.0); MEAN CORPUSCULAR HGB 30.7 pg (27.0-31.0); MEAN PLATELET VOLUME 10.1 fl (9.6-12.3); NUCLEATED RED BLOOD CELL 0.1 10*3/uL (0.0-0.0); NUCLEATED RED BLOOD CELL 1.1 % (0.0-0.0); PLATELET COUNT AUTOMATED 568 10*3/uL (130-400); RED BLOOD COUNT 2.31 10*6/uL (4.50-5.90); RED CELL DISTRI WIDTH 15.8 % (0-14.5); WHITE BLOOD COUNT 10.4 10*3/uL (4.8-10.8)
[2016-08-28 06:04] LABS: ALBUMIN 3.5 gm/dl (3.1-4.5); ALKALINE PHOSPHATASE 124 U/L (45-117); BILIRUBIN, TOTAL 0.3 mg/dl (0.2-1.0); BUN 9 mg/dl (7-24); CARBON DIOXIDE 28 mmol/L (21-32); CHLORIDE 109 mmol/L (98-107); EST GLOM FILT AFRICAN AMERICAN > 60 ml/min; GLUCOSE 180 mg/dL (65-99); PHOSPHOROUS 1.7 mg/dL (2.5-4.9); POTASSIUM 3.3 mmol/L (3.5-5.1); SGOT/AST 48 IU/L (3-35); SGPT/ALT 97 U/L (12-78); SODIUM 146 mmol/L (136-145); TOTAL PROTEIN 6.7 gm/dL (6.4-8.2)
[2016-08-28 06:11] LABS: MAGNESIUM 2.1 mg/dL (1.5-2.1)
[2016-08-28 06:26] LABS: PREALBUMIN 11 mg/dl (20-40)
[2016-08-28 07:04] LABS: LYMPHOCYTE # 0.8 10*3/uL (1.3-4.4); METAMYELOCYTES 1 % (0-0); MONOCYTE # 0.9 10*3/uL (0.1-1.0); MYELOCYTES 5 % (0-0); NEUTROPHIL # 7.9 10*3/uL (2.3-7.9); NEUTROPHILS 76 % (47-73); PROMYELOCYTES 1 % (0-0); TOTAL CELLS COUNTED 100 #CELLS
[2016-08-28 07:05] LABS: PLATELET SUFFICIENCY HIGH (NORMAL); POLYCHROMASIA SLIGHT
[2016-08-28 08:00] VITALS: BP 150/80
[2016-08-28 12:01] VITALS: BP 136/75
[2016-08-28 12:26] LABS: IRF 38.4 % (2.4-13.3); RET-He 25.7 pg (32.1-37.9); RETICULOCYTE % 1.38 % (0.50-2.50)
[2016-08-28 12:56] LABS: IRON 67 ug/dL (65-175); IRON SATURATION 57 %; UIBC 49 ug/dL (110-410)
[2016-08-28 14:22] LABS: LA>2 REFLEX 2 HR DRAW NOW
[2016-08-28 16:00] VITALS: BP 132/75
[2016-08-28 16:11] LABS: ORGANISM ID Not indicated. (.); SPECIMEN SOURCE Urine (.); STREPTOCOCCUS PNEUMONIAE AG Negative (Negative)
[2016-08-28 16:38] LABS: LA>2 REFLEX 4 HR DRAW NOW
[2016-08-28 20:00] VITALS: BP 126/70
[2016-08-29] VITALS: BP 135/70
[2016-08-29 07:41] LABS: HEMATOCRIT 26.2 % (42.0-52.0); HEMOGLOBIN 8.1 g/dl (14.0-18.0); MEAN CORPUSCULAR HGB CONC 30.9 g/dl (33.0-37.0); MEAN PLATELET VOLUME 9.8 fl (9.6-12.3); NUCLEATED RED BLOOD CELL 0.2 10*3/uL (0.0-0.0); NUCLEATED RED BLOOD CELL 1.4 % (0.0-0.0); PLATELET COUNT AUTOMATED 655 10*3/uL (130-400); RED CELL DISTRI WIDTH 16.1 % (0-14.5); WHITE BLOOD COUNT 11.1 10*3/uL (4.8-10.8)
[2016-08-29 08:00] VITALS: BP 103/70
[2016-08-29 08:13] LABS: ALBUMIN 3.4 gm/dl (3.1-4.5); BILIRUBIN, TOTAL 0.4 mg/dl (0.2-1.0); BUN 12 mg/dl (7-24); CARBON DIOXIDE 30 mmol/L (21-32); CHLORIDE 105 mmol/L (98-107); EST GLOM FILT AFRICAN AMERICAN > 60 ml/min; GLUCOSE 164 mg/dL (65-99); PHOSPHOROUS 1.7 mg/dL (2.5-4.9); SGOT/AST 27 IU/L (3-35); SGPT/ALT 86 U/L (12-78); SODIUM 142 mmol/L (136-145); TOTAL PROTEIN 6.9 gm/dL (6.4-8.2)
[2016-08-29 08:14] LABS: ALKALINE PHOSPHATASE 118 U/L (45-117)
[2016-08-29 08:20] LABS: ATYPICAL LYMPHS 2 % (0-0); LYMPHOCYTE # 1.1 10*3/uL (1.3-4.4); METAMYELOCYTES 3 % (0-0); MONOCYTE # 0.7 10*3/uL (0.1-1.0); MYELOCYTES 5 % (0-0); NEUTROPHIL # 8.2 10*3/uL (2.3-7.9); NEUTROPHILS 74 % (47-73); PLATELET SUFFICIENCY HIGH (NORMAL); POLYCHROMASIA SLIGHT; PROMYELOCYTES 2 % (0-0); TOTAL CELLS COUNTED 100 #CELLS; TOXIC GRANULATION SLIGHT
[2016-08-29 10:08] LABS: INTERNATIONAL NORM RATIO 1.1 (2.0-3.5); PROTHROMBIN TIME 11.6 SECONDS (9.0-12.4)
[2016-08-29 10:24] LABS: COL/EPI 85 SECONDS (86-157)
[2016-08-29 12:00] VITALS: BP 104/80
[2016-08-29 16:00] VITALS: BP 116/68
[2016-08-29 20:00] VITALS: BP 110/73
[2016-08-29 22:00] VITALS: BP 112/70
[2016-08-30] VITALS (20 sets, daily range): BP systolic 95–126; BP diastolic 55–93
[2016-08-30 07:46] LABS: HEMATOCRIT 24.6 % (42.0-52.0); HEMOGLOBIN 7.9 g/dl (14.0-18.0); MEAN CELL VOLUME 96.9 fl (80.0-94.0); MEAN CORPUSCULAR HGB 31.1 pg (27.0-31.0); MEAN CORPUSCULAR HGB CONC 32.1 g/dl (33.0-37.0); MEAN PLATELET VOLUME 9.7 fl (9.6-12.3); NUCLEATED RED BLOOD CELL 0.1 10*3/uL (0.0-0.0); PLATELET COUNT AUTOMATED 668 10*3/uL (130-400); RED BLOOD COUNT 2.54 10*6/uL (4.50-5.90); WHITE BLOOD COUNT 11.5 10*3/uL (4.8-10.8)
[2016-08-30 08:05] LABS: HYPOCHROMIA SLIGHT; LYMPHOCYTE # 0.2 10*3/uL (1.3-4.4); METAMYELOCYTES 2 % (0-0); MONOCYTE # 0.6 10*3/uL (0.1-1.0); MYELOCYTES 5 % (0-0); NEUTROPHIL # 9.9 10*3/uL (2.3-7.9); NEUTROPHILS 86 % (47-73); POLYCHROMASIA SLIGHT; ROULEAUX SLIGHT; TOTAL CELLS COUNTED 100 #CELLS
[2016-08-30 08:06] LABS: PLATELET SUFFICIENCY HIGH (NORMAL)
[2016-08-30 08:19] LABS: ALKALINE PHOSPHATASE 104 U/L (45-117); BILIRUBIN, TOTAL 0.3 mg/dl (0.2-1.0); BUN 19 mg/dl (7-24); CARBON DIOXIDE 31 mmol/L (21-32); CHLORIDE 106 mmol/L (98-107); EST GLOM FILT AFRICAN AMERICAN > 60 ml/min; GLUCOSE 172 mg/dL (65-99); MAGNESIUM 2.4 mg/dL (1.5-2.1); PHOSPHOROUS 1.4 mg/dL (2.5-4.9); POTASSIUM 4.2 mmol/L (3.5-5.1); SGOT/AST 16 IU/L (3-35); SGPT/ALT 66 U/L (12-78); SODIUM 144 mmol/L (136-145); TOTAL PROTEIN 6.3 gm/dL (6.4-8.2)
[2016-08-31] VITALS (11 sets, daily range): BP systolic 95–130; BP diastolic 54–78
[2016-08-31 06:12] LABS: HEMOGLOBIN 9.8 g/dl (14.0-18.0); MEAN CORPUSCULAR HGB 30.3 pg (27.0-31.0); MEAN CORPUSCULAR HGB CONC 31.9 g/dl (33.0-37.0); MEAN PLATELET VOLUME 9.7 fl (9.6-12.3); NUCLEATED RED BLOOD CELL 0.1 10*3/uL (0.0-0.0); NUCLEATED RED BLOOD CELL 0.8 % (0.0-0.0); PLATELET COUNT AUTOMATED 643 10*3/uL (130-400); RED BLOOD COUNT 3.23 10*6/uL (4.50-5.90); RED CELL DISTRI WIDTH 16.4 % (0-14.5); WHITE BLOOD COUNT 15.8 10*3/uL (4.8-10.8)
[2016-08-31 06:31] LABS: HEMATOCRIT 30.7 % (42.0-52.0)
[2016-08-31 06:38] LABS: ALBUMIN 2.8 gm/dl (3.1-4.5); ALKALINE PHOSPHATASE 101 U/L (45-117); BILIRUBIN, TOTAL 0.4 mg/dl (0.2-1.0); BUN 23 mg/dl (7-24); CARBON DIOXIDE 31 mmol/L (21-32); CHLORIDE 105 mmol/L (98-107); EST GLOM FILT AFRICAN AMERICAN > 60 ml/min; GLUCOSE 177 mg/dL (65-99); MAGNESIUM 2.2 mg/dL (1.5-2.1); PHOSPHOROUS 2.2 mg/dL (2.5-4.9); POTASSIUM 4.1 mmol/L (3.5-5.1); SGOT/AST 21 IU/L (3-35); SGPT/ALT 68 U/L (12-78); SODIUM 143 mmol/L (136-145); TOTAL PROTEIN 6.2 gm/dL (6.4-8.2)
[2016-08-31 06:45] LABS: LYMPHOCYTE # 0.8 10*3/uL (1.3-4.4); METAMYELOCYTES 2 % (0-0); MONOCYTE # 1.4 10*3/uL (0.1-1.0); MYELOCYTES 3 % (0-0); NEUTROPHIL # 12.6 10*3/uL (2.3-7.9); NEUTROPHILS 80 % (47-73); PLATELET SUFFICIENCY HIGH (NORMAL); POLYCHROMASIA SLIGHT; PROMYELOCYTES 1 % (0-0); TOTAL CELLS COUNTED 100 #CELLS
[2016-08-31 15:07] LABS: ACID FAST SPEC PROCESSING Concentration (.)
[2016-09-01] VITALS (9 sets, daily range): BP systolic 107–157; BP diastolic 55–88
[2016-09-01 06:28] LABS: HEMATOCRIT 32.8 % (42.0-52.0); HEMOGLOBIN 10.4 g/dl (14.0-18.0); MEAN CELL VOLUME 97.3 fl (80.0-94.0); MEAN CORPUSCULAR HGB 30.9 pg (27.0-31.0); MEAN CORPUSCULAR HGB CONC 31.7 g/dl (33.0-37.0); NUCLEATED RED BLOOD CELL 0.1 10*3/uL (0.0-0.0); NUCLEATED RED BLOOD CELL 0.6 % (0.0-0.0); PLATELET COUNT AUTOMATED 620 10*3/uL (130-400); RED BLOOD COUNT 3.37 10*6/uL (4.50-5.90); RED CELL DISTRI WIDTH 16.7 % (0-14.5); WHITE BLOOD COUNT 17.2 10*3/uL (4.8-10.8)
[2016-09-01 06:47] LABS: LYMPHOCYTE # 0.7 10*3/uL (1.3-4.4); METAMYELOCYTES 2 % (0-0); MONOCYTE # 0.2 10*3/uL (0.1-1.0); MYELOCYTES 5 % (0-0); NEUTROPHIL # 15.1 10*3/uL (2.3-7.9); NEUTROPHILS 88 % (47-73); PLATELET SUFFICIENCY HIGH (NORMAL); POLYCHROMASIA SLIGHT; TOTAL CELLS COUNTED 100 #CELLS
[2016-09-01 06:54] LABS: ALBUMIN 2.9 gm/dl (3.1-4.5); BUN 24 mg/dl (7-24); CARBON DIOXIDE 31 mmol/L (21-32); CHLORIDE 104 mmol/L (98-107); GLUCOSE 187 mg/dL (65-99); MAGNESIUM 2.1 mg/dL (1.5-2.1); SODIUM 145 mmol/L (136-145)
[2016-09-01 06:58] LABS: ALKALINE PHOSPHATASE 96 U/L (45-117); BILIRUBIN, TOTAL 0.3 mg/dl (0.2-1.0); EST GLOM FILT AFRICAN AMERICAN > 60 ml/min; PHOSPHOROUS 2.8 mg/dL (2.5-4.9); SGOT/AST 34 IU/L (3-35); SGPT/ALT 87 U/L (12-78)
[2016-09-02] VITALS (8 sets, daily range): BP systolic 106–129; BP diastolic 45–70
[2016-09-02 07:42] LABS: HEMATOCRIT 30.2 % (42.0-52.0); HEMOGLOBIN 9.8 g/dl (14.0-18.0); MEAN CELL VOLUME 97.4 fl (80.0-94.0); MEAN CORPUSCULAR HGB 31.6 pg (27.0-31.0); MEAN CORPUSCULAR HGB CONC 32.5 g/dl (33.0-37.0); MEAN PLATELET VOLUME 9.5 fl (9.6-12.3); NUCLEATED RED BLOOD CELL 0.1 10*3/uL (0.0-0.0); NUCLEATED RED BLOOD CELL 0.3 % (0.0-0.0); PLATELET COUNT AUTOMATED 529 10*3/uL (130-400); RED CELL DISTRI WIDTH 16.4 % (0-14.5); WHITE BLOOD COUNT 19.9 10*3/uL (4.8-10.8)
[2016-09-02 08:01] LABS: LYMPHOCYTE # 0.6 10*3/uL (1.3-4.4); METAMYELOCYTES 3 % (0-0); MONOCYTE # 0.6 10*3/uL (0.1-1.0); MYELOCYTES 7 % (0-0); NEUTROPHIL # 16.7 10*3/uL (2.3-7.9); NEUTROPHILS 84 % (47-73); PROMYELOCYTES 1 % (0-0); TOTAL CELLS COUNTED 200 #CELLS
[2016-09-02 08:02] LABS: PLATELET SUFFICIENCY HIGH (NORMAL)
[2016-09-02 08:03] LABS: POLYCHROMASIA SLIGHT
[2016-09-03] VITALS: BP 123/72
[2016-09-03 08:00] VITALS: BP 141/67; BP 150/74
[2016-09-03 12:00] VITALS: BP 142/75
[2016-09-03] MEDS ORDERED: HOSPBED (13:18)
[2016-09-03 14:00] VITALS: BP 138/76
[2016-09-03 16:00] VITALS: BP 138/76
[2016-09-03 20:00] VITALS: BP 146/76
[2016-09-04] VITALS: BP 158/86
[2016-09-04 06:11] LABS: HEMATOCRIT 34.4 % (42.0-52.0); HEMOGLOBIN 11.1 g/dl (14.0-18.0); MEAN CELL VOLUME 96.9 fl (80.0-94.0); MEAN CORPUSCULAR HGB 31.3 pg (27.0-31.0); MEAN CORPUSCULAR HGB CONC 32.3 g/dl (33.0-37.0); MEAN PLATELET VOLUME 9.8 fl (9.6-12.3); NUCLEATED RED BLOOD CELL 0.1 % (0.0-0.0); PLATELET COUNT AUTOMATED 430 10*3/uL (130-400); RED BLOOD COUNT 3.55 10*6/uL (4.50-5.90); RED CELL DISTRI WIDTH 16.1 % (0-14.5)
[2016-09-04 06:26] LABS: EST GLOM FILT AFRICAN AMERICAN > 60 ml/min
[2016-09-04 07:17] LABS: LYMPHOCYTE # 1.5 10*3/uL (1.3-4.4); METAMYELOCYTES 3 % (0-0); MONOCYTE # 0.3 10*3/uL (0.1-1.0); MYELOCYTES 3 % (0-0); NEUTROPHIL # 21.8 10*3/uL (2.3-7.9); NEUTROPHILS 87 % (47-73); TOTAL CELLS COUNTED 100 #CELLS
[2016-09-04 07:18] LABS: PLATELET SUFFICIENCY HIGH (NORMAL); POLYCHROMASIA SLIGHT
[2016-09-04 08:00] VITALS: BP 120/53
[2016-09-04 12:00] VITALS: BP 125/71
[2016-09-04] MEDS ORDERED: DILTIAZEM HCL90 MG PO (13:10)
[2016-09-04] MEDS ORDERED: K-PHOS500 MG PO (13:10)
[2016-09-04] MEDS ORDERED: D-1000 185 MG-11 TAB PO (13:10)
[2016-09-04] MEDS ORDERED: Oscal,Oyster S500 MG PO (13:10)
[2016-09-04] MEDS ORDERED: CLOPIDOGREL75 MG PO (13:10)
[2016-09-04] MEDS ORDERED: ASPIRIN ADULT L81 M2 PO (13:10)
[2016-09-04] MEDS ORDERED: DOXYCYCLINE100 M3 PO (13:11)
[2016-09-04] MEDS ORDERED: PREDNISONE10 MG PO (13:13)
[2016-09-04 16:00] VITALS: BP 128/59
== END 2016-09-04 17:41 | disposition home health service (06) | DRG 871 ==
LOC: ED 20:22 → 4E 22:47 → EDHOLD 22:47 → 4E 23:02
PROVIDERS: Emergency Medicine Emergency Medical Services; Internal Medicine; Internal Medicine Critical Care Medicine; Internal Medicine Hospice and Palliative Medicine
PROC: 30233N1 Transfusion of Nonautologous Red Blood Cells into Peripheral Vein, Percutaneous Approach (ICD-10-PCS; principal; 2016-08-30)
PROC: 0BC88ZZ Extirpation of Matter from Left Upper Lobe Bronchus, Via Natural or Artificial Opening Endoscopic (ICD-10-PCS; principal; 2016-08-30)
PROC: 0BCB8ZZ Extirpation of Matter from Left Lower Lobe Bronchus, Via Natural or Artificial Opening Endoscopic (ICD-10-PCS; principal; 2016-08-30)
PROC: 0BC68ZZ Extirpation of Matter from Right Lower Lobe Bronchus, Via Natural or Artificial Opening Endoscopic (ICD-10-PCS; principal; 2016-08-30)
PROC: 0BC58ZZ Extirpation of Matter from Right Middle Lobe Bronchus, Via Natural or Artificial Opening Endoscopic (ICD-10-PCS; principal; 2016-08-30)
PROC: 0BC48ZZ Extirpation of Matter from Right Upper Lobe Bronchus, Via Natural or Artificial Opening Endoscopic (ICD-10-PCS; principal; 2016-08-30)
PROC: 0BC98ZZ Extirpation of Matter from Lingula Bronchus, Via Natural or Artificial Opening Endoscopic (ICD-10-PCS; principal; 2016-08-30)
PROC: 0BC28ZZ Extirpation of Matter from Carina, Via Natural or Artificial Opening Endoscopic (ICD-10-PCS; principal; 2016-08-30)
DX: A41.9 Sepsis, unspecified organism (principal); J96.21 Acute and chronic respiratory failure with hypoxia; E43 Unspecified severe protein-calorie malnutrition; E87.2 Acidosis; J15.212 Pneumonia due to Methicillin resistant Staphylococcus aureus; B37.0 Candidal stomatitis; E87.8 Other disorders of electrolyte and fluid balance, not elsewhere classified; Z99.81 Dependence on supplemental oxygen; J44.0 Chronic obstructive pulmonary disease with (acute) lower respiratory infection; J44.1 Chronic obstructive pulmonary disease with (acute) exacerbation; Z68.1 Body mass index [BMI] 19.9 or less, adult; R65.20 Severe sepsis without septic shock; K21.9 Gastro-esophageal reflux disease without esophagitis; E78.5 Hyperlipidemia, unspecified; N40.0 Benign prostatic hyperplasia without lower urinary tract symptoms; M54.5 Low back pain; R32 Unspecified urinary incontinence; E86.0 Dehydration; E03.9 Hypothyroidism, unspecified; D53.9 Nutritional anemia, unspecified; D47.3 Essential (hemorrhagic) thrombocythemia; R33.9 Retention of urine, unspecified; J20.9 Acute bronchitis, unspecified; I48.91 Unspecified atrial fibrillation; R53.81 Other malaise; E83.39 Other disorders of phosphorus metabolism; E83.51 Hypocalcemia; R73.9 Hyperglycemia, unspecified; Z85.51 Personal history of malignant neoplasm of bladder; Z83.3 Family history of diabetes mellitus; Z82.49 Family history of ischemic heart disease and other diseases of the circulatory system; Z80.1 Family history of malignant neoplasm of trachea, bronchus and lung; Z79.51 Long term (current) use of inhaled steroids; Z87.891 Personal history of nicotine dependence; Z79.899 Other long term (current) drug therapy

== ENCOUNTER → 2016-09-18 | Outpatient (CLI) | payer MEDICARE, OTHER ==
[~2016-09-18] MED LIST changes: +ASPIRIN ADULT L81 M2 PO; +CALCIUM600 M2 PO; +CLOPIDOGREL75 MG PO; +D-1000 185 MG-11 TAB PO; +DILTIAZEM HCL90 MG PO; +DOXYCYCLINE100 M3 PO; +DURAGESIC 50 M50 MCG TD; +HOSPBED; +K-PHOS500 MG PO; +OXYCODONE HCL10 M1 PO; +Oscal,Oyster S500 MG PO; +PROCHLORPERAZIN10 M1 PO; +REMERON15 M2 PO; +VITAMIN B121000 MC1 PO; +VITAMIN D1000 IU PO
== END | disposition home or self-care (01) ==
LOC: RAD 11:10
DX: J44.9 Chronic obstructive pulmonary disease, unspecified (principal); I48.91 Unspecified atrial fibrillation; J18.9 Pneumonia, unspecified organism; J96.21 Acute and chronic respiratory failure with hypoxia; R59.0 Localized enlarged lymph nodes; F17.200 Nicotine dependence, unspecified, uncomplicated

== ENCOUNTER → 2016-09-26 | Outpatient (CLI) | payer MEDICARE, OTHER ==
[~2016-09-26] MED LIST changes: +ASPIRIN81 M1 PO; +CALCIUM500 M1 PO; +CARDIZEM30 MG PO; +COLACE100 MG PO; +Carafate1 GM PO; +DALIRESP500 MC1 PO; +DURAGESIC 100100 MCG TD; +Ipratropium Brom3 ML INH; +MARINOL5 MG PO; +MIRALAX17 GM PO; +MULTIVITAMINS1 EACH PO; +PHOSPHA 250 NEU1 TAB PO; +PLAVIX75 M1 PO; +PROCHLORPERAZIN10 MG PO; +SPIRIVA RESPIMAT4 GM INH; +VITAMIN D31000 IU PO
== END | disposition home or self-care (01) ==
LOC: CP 09:37
DX: J44.9 Chronic obstructive pulmonary disease, unspecified (principal)

== ENCOUNTER 2016-09-29 11:19 | Inpatient (IN) | payer MEDICARE, OTHER ==
[~2016-09-29] VITALS: Ht 172.7 cm; Wt 49.6 kg
--- NOTE | ~2016-09-29 | CON ---
[place], [place] REPORT OF CONSULTATION NAME: [facility] SR [id number]IT #: [id number] ROOM: 427 DOCTOR: MAURA DUQUE MD BIRTHDATE: [birth year] DOS: 09/30/2016 PULMONARY CONSULTATION, EVALUATION AND MANAGEMENT REASON FOR CONSULTATION: To assess the patient for ongoing acute respiratory symptoms with exacerbation of COPD. HISTORY OF PRESENT ILLNESS: This is a 76-year-old white male who has been noted with a past hospitalization, initially was in hospital in 08/2016. The patient was managed in the hospital at that time for acute pneumonia with MRSA with acute hypoxic respiratory failure. The patient has been treated and improved and doing very well, with his usual state of health. The patient has been presented to the hospital with 3 stated symptoms of having increased shortness of breath that has been occurring with the development of a cough with small amount of yellow sputum expectoration. The patient denies any symptoms of chest pain with that. Wheezing is also described at times. He has not been noted any symptoms of hemoptysis. REVIEW OF SYSTEMS: CONSTITUTIONAL: Fatigue and tiredness and increased cough. Denies symptoms of fever. Possibility of chills was described. EYES: Denies any burning, redness, or tenderness. EARS, NOSE, AND THROAT: Denies sore throat, hoarseness, otalgia, postnasal drainage. CARDIOVASCULAR: Denies anginal pain, edema or pain of the lower extremities. GASTROINTESTINAL: Denies dysphagia, nausea, vomiting, diarrhea, abdominal pain, hematemesis, melena, hematochezia. MUSCULOSKELETAL: Denies acute joint pain, redness, or tenderness. SKIN: Denies lesions or rashes. CENTRAL NERVOUS SYSTEM: Denies dizziness, headache, diplopia, syncopal episodes or tingling sensation of the extremities. The remaining systems were reviewed with the patient, they were noted all negative. PAST MEDICAL HISTORY: 1. Acute hypoxic respiratory failure, MRSA pneumonia for this patient with atrial fibrillation with rapid ventricular response, new onset, with the medical record review for this patient from 08/2016 hospitalization. 2. History of bladder cancer. 3. Metastatic prostate cancer was also reported. 4. Previous history of abnormal weight loss. 5. Hyperlipidemia. 6. Hypothyroidism. 7. Past tobacco use. 8. History of gastroesophageal reflux. 9. Atrial fibrillation. PAST SURGICAL HISTORY: 1. TURP. [place], [place] REPORT OF CONSULTATION NAME: SUJEY ZAMBRANO SR UNIT #: [id number] ROOM: 427 DOCTOR: KIMBERLY LESTER MD,MAURA BIRTHDATE: [birth year] 2. Bladder cancer which has been treated 5 years ago. 3. Fiberoptic bronchoscopy that was done on 08/30/2016. SOCIAL HISTORY: The patient is , has 7 children. Smoking started at the age of [age] years old for the patient until 2011. He has smoked about a pack of cigarettes per day. The patient does have history of alcohol use, illicit drug use. He drinks about 2-3 beers a day. FAMILY HISTORY: Both parents have been . Mother of complication of lung cancer. Father from complication of myocardial infarction and diabetes mellitus. MEDICATIONS: Current administered medications noted use of Remeron, Plavix, aspirin, multivitamin, vitamin D, calcium carbonate, Daliresp, enoxaparin for DVT prophylaxis, Protonix, levothyroxine, Cardizem, IV Solu-Medrol 40 mg b.i.d., Carafate, Flomax, albuterol sulfate with a nebulizer, IV Levaquin, and certain p.r.n. medications including use of fentanyl, regular use for the pain management. DRUG ALLERGIES: No known drug allergies. PHYSICAL EXAMINATION: GENERAL: A 76-year-old male who has been currently noted sitting on the side of the bed, starting to eating his breakfast. His height was noted 5 feet 8 inches, weight of 49 kg, BMI 16.6. VITAL SIGNS: Show a normal temperature, respirations 18-20, heart rate of 105-123, blood pressure 116/59 to 115/54. Intake is 1500 mL, output was not recorded. Pulse ox saturation on 2 L nasal cannula was reported as 94-100% saturation. HEENT: Shows loss of muscle mastication. Head was atraumatic. Eyes nonicterus. Oral mucosa was moist. CARDIOVASCULAR: S1, S2 audible. LUNGS: The patient was noted with general reduction in breath sounds in the lungs with expiratory wheezing. Occasional crackles of the lungs were noted bilaterally as well. ABDOMEN: Soft and nontender. It was flat. EXTREMITIES: The patient shows no edema, clubbing, cyanosis. SKIN: Showed dryness of the skin with some lesions and bruises of the skin, most likely related to his home use of medications. LABORATORY DATA: CBC on 09/29/2016, hemoglobin 7.9, hematocrit 24.5, WBC count normal, platelet count was normal. CMP of 09/29/2016, BUN normal, creatinine was normal, glucose 148. AST 42, ALT 86. CBC of the patient this morning, WBC count 3.3, hemoglobin 7.5, hematocrit 23.2, platelet count 176,000. CMP of the patient that was done this morning, BUN normal, creatinine was normal, glucose 190. REVIEW OF RADIOLOGY DATA: The chest x-ray that was done on admission shows increased interstitial marking noted in lower lung hernandez without any acute pulmonary infiltration, area of consolidation, finding of congestive heart [place], [place] REPORT OF CONSULTATION NAME: SUJEY ZAMBRANO SR UNIT #: [id number] ROOM: 427 DOCTOR: MAURA DUQUE MD BIRTHDATE: [birth year] failure. IMPRESSION: 1. The patient who has been currently admitted to the hospital noted with recurrent acute exacerbation of chronic obstructive pulmonary disease with acute tracheobronchitis. 2. History of cancer of the prostate and the bladder previously noted. 3. Bilateral pulmonary infiltration was noted previously with methicillin-resistant Staphylococcus aureus, which has been already resolved. 4. History of atrial fibrillation as well with rapid ventricular response. 5. Past history of tobacco use. 6. Acute exacerbation of chronic obstructive pulmonary disease. PLAN OF TREATMENT: The patient has been started on the antibiotic such as Levaquin. Obtain the sputum for Gram stain and culture. Continuation of bronchodilators and corticosteroids at current dose. Monitor respiratory status closely. Other supportive therapy, plan and management with the history of abnormal weight loss, most likely related to Daliresp and needs to be discontinued, the patient with noted progressive weight loss. This is unintended side effect related to the use of current medication and severe COPD. Bronchoscopy could be assessed and done for the patient if the patient continued to have severe nonproductive cough as previously. Thanks for allowing me to participate in the care of this patient. MAURA HARRIS MD CM:CONSTR:REPORT OF CONSULTATION 1126 09/30/16 1615 interface
--- NOTE | ~2016-09-29 | PROC NOTE ---
[place], [place] PROCEDURE NOTE NAME: SUJEY ZAMBRANO SR [id number] UNIT #: [id number] ROOM: 427 DOCTOR: KIMBERLY LESTER MD,MAURA BIRTHDATE: [birth year] DOS: 10/03/2016 PREOPERATIVE DIAGNOSIS: The patient with severe coughing and wheezing now resolved, responding to current maximum medical therapy. POSTOPERATIVE DIAGNOSES: Removal of multiple plugs and mucus from the endobronchial tree bilaterally successfully without difficulty. COMPLICATIONS: None. PROCEDURE DESCRIPTION: Informed consent obtained for the patient. The patient brought to the OR and placed in supine position. Conscious sedation was administered by the Anesthesia Department. After achieving appropriate sedation, airway introduced into the mouth. Bronchoscope advanced into the airway into laryngeal area. Epiglottis and vocal cords were seen. Vocal were noted symmetrical movement was noted moving symmetrically with movements. The bronchoscope was advanced into the tracheal lumen. Large amount of mucoid secretion present in the tracheal lumen, which was suctioned out. Jennifer was noted. Right upper, right middle, left upper, lingular lower lobe bronchi were all examined successfully. The patient noted with copious amount of secretion production. The patient impaction of thick plugs and mucus endobronchial tree bilaterally, which were suctioned out with the help of normal saline wash and sent for culture. Procedure was tolerated by the patient without difficulty. Postoperative findings were discussed with the patient's daughter in detail after the completion of the procedure in the recovery room. MAURA HARRIS MD CM:PROCNOTE:PROCEDURE NOTE [id number] MAURA LESTER MD
[2016-09-29 11:19] VITALS: BP 125/65
[~2016-09-29 11:19] MED LIST changes: -ASPIRIN81 M1 PO; -CALCIUM500 M1 PO; -CARDIZEM30 MG PO; -COLACE100 MG PO; -Carafate1 GM PO; -DALIRESP500 MC1 PO; -DURAGESIC 100100 MCG TD; -Ipratropium Brom3 ML INH; -MARINOL5 MG PO; -MIRALAX17 GM PO; -MULTIVITAMINS1 EACH PO; -PHOSPHA 250 NEU1 TAB PO; -PLAVIX75 M1 PO; -PROCHLORPERAZIN10 MG PO; -SPIRIVA RESPIMAT4 GM INH; -VITAMIN D31000 IU PO
[2016-09-29] MEDS ORDERED: Carafate1 GM PO (11:46)
[2016-09-29] MEDS ORDERED: FLOMAX0.4 MG PO (11:46)
[2016-09-29] MEDS ORDERED: DALIRESP500 MC1 PO (11:47)
[2016-09-29] MEDS ORDERED: ZOCOR40 MG PO (11:47)
[2016-09-29] MEDS ORDERED: SYNTHROID25 MCG PO (11:47)
[2016-09-29] MEDS ORDERED: SPIRIVA RESPIMAT4 GM INH (11:48)
[2016-09-29] MEDS ORDERED: ADVAIR 250/501 EA INH (11:48)
[2016-09-29] MEDS ORDERED: NEXIUM40 MG PO (11:48)
[2016-09-29] MEDS ORDERED: PROAIR HFA8.5 GM INH (11:49)
[2016-09-29] MEDS ORDERED: MARINOL5 MG PO (11:50)
[2016-09-29] MEDS ORDERED: Ipratropium Brom3 ML INH (11:50)
[2016-09-29] MEDS ORDERED: PHOSPHA 250 NEU1 TAB PO (11:50)
[2016-09-29] MEDS ORDERED: DUONEB 3 MG/3 ML3 M1 INH (11:51)
[2016-09-29] MEDS ORDERED: COLACE100 MG PO (11:51)
[2016-09-29] MEDS ORDERED: CALCIUM500 M1 PO (11:52)
[2016-09-29] MEDS ORDERED: CARDIZEM30 MG PO (11:52)
[2016-09-29] MEDS ORDERED: VITAMIN D31000 IU PO (11:53)
[2016-09-29] MEDS ORDERED: MULTIVITAMINS1 EACH PO (11:53)
[2016-09-29] MEDS ORDERED: VITAMIN B121000 MC1 PO (11:54)
[2016-09-29] MEDS ORDERED: OXYCODONE HCL10 M1 PO (11:54)
[2016-09-29] MEDS ORDERED: DURAGESIC 100100 MCG TD (11:55)
[2016-09-29] MEDS ORDERED: ASPIRIN81 M1 PO (11:55)
[2016-09-29] MEDS ORDERED: REMERON15 M2 PO (11:55)
[2016-09-29] MEDS ORDERED: PROCHLORPERAZIN10 MG PO (11:56)
[2016-09-29] MEDS ORDERED: PLAVIX75 M1 PO (11:56)
[2016-09-29 12:13] LABS: HEMATOCRIT 24.5 % (42.0-52.0); HEMOGLOBIN 7.9 g/dl (14.0-18.0); MEAN CELL VOLUME 96.8 fl (80.0-94.0); MEAN CORPUSCULAR HGB 31.2 pg (27.0-31.0); MEAN CORPUSCULAR HGB CONC 32.2 g/dl (33.0-37.0); MEAN PLATELET VOLUME 8.6 fl (9.6-12.3); NUCLEATED RED BLOOD CELL 0.4 % (0.0-0.0); PLATELET COUNT AUTOMATED 188 10*3/uL (130-400); RED BLOOD COUNT 2.53 10*6/uL (4.50-5.90); RED CELL DISTRI WIDTH 16.9 % (0-14.5); WHITE BLOOD COUNT 5.3 10*3/uL (4.8-10.8)
[2016-09-29 12:30] LABS: ALBUMIN 2.2 gm/dl (3.1-4.5); ALKALINE PHOSPHATASE 255 U/L (45-117); BILIRUBIN, TOTAL 0.4 mg/dl (0.2-1.0); BUN 12 mg/dl (7-24); CARBON DIOXIDE 29 mmol/L (21-32); CHLORIDE 101 mmol/L (98-107); EST GLOM FILT AFRICAN AMERICAN > 60 ml/min; GLUCOSE 148 mg/dL (65-99); MAGNESIUM 2.3 mg/dL (1.5-2.1); POTASSIUM 3.9 mmol/L (3.5-5.1); SGOT/AST 42 IU/L (3-35); SGPT/ALT 86 U/L (12-78); SODIUM 140 mmol/L (136-145); TOTAL PROTEIN 6.7 gm/dL (6.4-8.2)
[2016-09-29 12:31] LABS: LYMPHOCYTE # 0.5 10*3/uL (1.3-4.4); MONOCYTE # 0.2 10*3/uL (0.1-1.0); NEUTROPHIL # 4.6 10*3/uL (2.3-7.9); NEUTROPHILS 87 % (47-73); TOTAL CELLS COUNTED 100 #CELLS
[2016-09-29 12:32] LABS: DOHLE BODIES FEW; PLATELET SUFFICIENCY NORMAL (NORMAL); POLYCHROMASIA SLIGHT; TOXIC GRANULATION MODERATE; TROPONIN I < 0.015 ng/ml (<0.045)
[2016-09-29 12:55] VITALS: BP 122/66
[2016-09-29 14:30] VITALS: BP 120/51
[2016-09-29 16:00] VITALS: BP 123/52
[2016-09-29 20:00] VITALS: BP 115/54
[2016-09-30] VITALS (14 sets, daily range): BP systolic 109–129; BP diastolic 52–69
[2016-09-30 06:55] LABS: HEMATOCRIT 23.3 % (42.0-52.0); HEMOGLOBIN 7.5 g/dl (14.0-18.0); MEAN CELL VOLUME 96.3 fl (80.0-94.0); MEAN CORPUSCULAR HGB CONC 32.2 g/dl (33.0-37.0); MEAN PLATELET VOLUME 9.7 fl (9.6-12.3); NUCLEATED RED BLOOD CELL 0.9 % (0.0-0.0); PLATELET COUNT AUTOMATED 176 10*3/uL (130-400); RED BLOOD COUNT 2.42 10*6/uL (4.50-5.90); RED CELL DISTRI WIDTH 16.6 % (0-14.5); WHITE BLOOD COUNT 3.3 10*3/uL (4.8-10.8)
[2016-09-30 07:11] LABS: BUN 8 mg/dl (7-24); CARBON DIOXIDE 26 mmol/L (21-32); CHLORIDE 99 mmol/L (98-107); EST GLOM FILT AFRICAN AMERICAN > 60 ml/min; GLUCOSE 190 mg/dL (65-99); MAGNESIUM 2.2 mg/dL (1.5-2.1); PHOSPHOROUS 1.6 mg/dL (2.5-4.9); POTASSIUM 3.8 mmol/L (3.5-5.1); SGOT/AST 34 IU/L (3-35); SGPT/ALT 80 U/L (12-78); SODIUM 135 mmol/L (136-145); TOTAL PROTEIN 6.5 gm/dL (6.4-8.2); TRIGLYCERIDES 71 mg/dl (<150); VLDL CHOLESTEROL 14 mg/dL (6-40)
[2016-09-30 07:13] LABS: ALKALINE PHOSPHATASE 235 U/L (45-117); BILIRUBIN, TOTAL 0.3 mg/dl (0.2-1.0); CHOLESTEROL 118 mg/dL (<200); HDL CHOLESTEROL 52 mg/dl (40-60); LDL CHOLESTEROL 52 mg/dL (9-159)
[2016-09-30 07:29] LABS: ATYPICAL LYMPHS 1 % (0-0); LYMPHOCYTE # 0.5 10*3/uL (1.3-4.4); MONOCYTE # 0.3 10*3/uL (0.1-1.0); NEUTROPHIL # 2.5 10*3/uL (2.3-7.9); NEUTROPHILS 77 % (47-73); PLASMA CELL 1 % (0-0); PLATELET SUFFICIENCY NORMAL (NORMAL); TOTAL CELLS COUNTED 100 #CELLS; TOXIC GRANULATION SLIGHT
[2016-09-30 07:30] LABS: ROULEAUX SLIGHT
[2016-09-30] MEDS ORDERED: MIRALAX17 GM PO (14:12)
[2016-10-01] VITALS: BP 136/61
[2016-10-01 04:00] VITALS: BP 118/59
[2016-10-01 06:48] LABS: HEMATOCRIT 26.8 % (42.0-52.0); HEMOGLOBIN 8.7 g/dl (14.0-18.0); MEAN CELL VOLUME 93.7 fl (80.0-94.0); MEAN CORPUSCULAR HGB 30.4 pg (27.0-31.0); MEAN CORPUSCULAR HGB CONC 32.5 g/dl (33.0-37.0); MEAN PLATELET VOLUME 9.4 fl (9.6-12.3); NUCLEATED RED BLOOD CELL 0.1 10*3/uL (0.0-0.0); NUCLEATED RED BLOOD CELL 1.9 % (0.0-0.0); PLATELET COUNT AUTOMATED 168 10*3/uL (130-400); RED BLOOD COUNT 2.86 10*6/uL (4.50-5.90); RED CELL DISTRI WIDTH 19.1 % (0-14.5); WHITE BLOOD COUNT 4.6 10*3/uL (4.8-10.8)
[2016-10-01 07:11] LABS: BUN 13 mg/dl (7-24); CARBON DIOXIDE 30 mmol/L (21-32); CHLORIDE 100 mmol/L (98-107); EST GLOM FILT AFRICAN AMERICAN > 60 ml/min; GLUCOSE 194 mg/dL (65-99); POTASSIUM 4.5 mmol/L (3.5-5.1); SODIUM 141 mmol/L (136-145)
[2016-10-01 07:28] LABS: ATYPICAL LYMPHS 1 % (0-0); LYMPHOCYTE # 0.4 10*3/uL (1.3-4.4); MONOCYTE # 0.2 10*3/uL (0.1-1.0); NEUTROPHILS 87 % (47-73); PLATELET SUFFICIENCY NORMAL (NORMAL); POLYCHROMASIA SLIGHT; ROULEAUX SLIGHT; TOTAL CELLS COUNTED 100 #CELLS
[2016-10-01 08:00] VITALS: BP 130/63
[2016-10-01 12:00] VITALS: BP 112/48
[2016-10-01 16:00] VITALS: BP 120/68
[2016-10-01 20:00] VITALS: BP 127/59
[2016-10-02] VITALS: BP 126/62
[2016-10-02 03:52] VITALS: BP 119/59
[2016-10-02 06:19] LABS: HEMATOCRIT 25.5 % (42.0-52.0); HEMOGLOBIN 8.3 g/dl (14.0-18.0); MEAN CELL VOLUME 93.8 fl (80.0-94.0); MEAN CORPUSCULAR HGB 30.5 pg (27.0-31.0); MEAN CORPUSCULAR HGB CONC 32.5 g/dl (33.0-37.0); MEAN PLATELET VOLUME 9.5 fl (9.6-12.3); NUCLEATED RED BLOOD CELL 0.1 10*3/uL (0.0-0.0); NUCLEATED RED BLOOD CELL 1.4 % (0.0-0.0); PLATELET COUNT AUTOMATED 156 10*3/uL (130-400); RED BLOOD COUNT 2.72 10*6/uL (4.50-5.90); RED CELL DISTRI WIDTH 18.7 % (0-14.5); WHITE BLOOD COUNT 4.2 10*3/uL (4.8-10.8)
[2016-10-02 06:33] LABS: BUN 14 mg/dl (7-24); CARBON DIOXIDE 31 mmol/L (21-32); CHLORIDE 98 mmol/L (98-107); EST GLOM FILT AFRICAN AMERICAN > 60 ml/min; GLUCOSE 194 mg/dL (65-99); POTASSIUM 4.2 mmol/L (3.5-5.1); SODIUM 137 mmol/L (136-145)
[2016-10-02 06:53] LABS: LYMPHOCYTE # 0.3 10*3/uL (1.3-4.4); MONOCYTE # 0.2 10*3/uL (0.1-1.0); NEUTROPHIL # 3.7 10*3/uL (2.3-7.9); NEUTROPHILS 88 % (47-73); PLATELET SUFFICIENCY NORMAL (NORMAL); POLYCHROMASIA SLIGHT; TOTAL CELLS COUNTED 100 #CELLS; TOXIC GRANULATION SLIGHT
[2016-10-02 07:59] VITALS: BP 129/57
[2016-10-02 12:00] VITALS: BP 129/67
[2016-10-02 13:38] LABS: PROTHROMBIN TIME 10.9 SECONDS (9.0-12.4)
[2016-10-02 14:15] LABS: COL/ADP 81 SECONDS (63-105); COL/EPI > 300 SECONDS (86-157)
[2016-10-02 16:00] VITALS: BP 128/62; BP 138/71
[2016-10-02 20:00] VITALS: BP 118/55
[2016-10-03] VITALS (9 sets, daily range): BP systolic 96–142; BP diastolic 50–73
[2016-10-03 06:22] LABS: HEMATOCRIT 26.2 % (42.0-52.0); HEMOGLOBIN 8.6 g/dl (14.0-18.0); MEAN CELL VOLUME 94.9 fl (80.0-94.0); MEAN CORPUSCULAR HGB 31.2 pg (27.0-31.0); MEAN CORPUSCULAR HGB CONC 32.8 g/dl (33.0-37.0); NUCLEATED RED BLOOD CELL 0.1 10*3/uL (0.0-0.0); NUCLEATED RED BLOOD CELL 1.3 % (0.0-0.0); PLATELET COUNT AUTOMATED 158 10*3/uL (130-400); RED BLOOD COUNT 2.76 10*6/uL (4.50-5.90); RED CELL DISTRI WIDTH 18.5 % (0-14.5); WHITE BLOOD COUNT 3.9 10*3/uL (4.8-10.8)
[2016-10-03 06:46] LABS: LYMPHOCYTE # 0.4 10*3/uL (1.3-4.4); MONOCYTE # 0.1 10*3/uL (0.1-1.0); MYELOCYTES 1 % (0-0); NEUTROPHIL # 3.4 10*3/uL (2.3-7.9); NEUTROPHILS 86 % (47-73); PLATELET SUFFICIENCY NORMAL (NORMAL); POLYCHROMASIA SLIGHT; PROMYELOCYTES 1 % (0-0); ROULEAUX SLIGHT; TOTAL CELLS COUNTED 100 #CELLS; TOXIC GRANULATION MODERATE
[2016-10-03 06:50] LABS: BUN 15 mg/dl (7-24); CARBON DIOXIDE 32 mmol/L (21-32); CHLORIDE 98 mmol/L (98-107); EST GLOM FILT AFRICAN AMERICAN > 60 ml/min; GLUCOSE 173 mg/dL (65-99); POTASSIUM 4.1 mmol/L (3.5-5.1); SODIUM 138 mmol/L (136-145)
[2016-10-04] VITALS: BP 121/65
[2016-10-04 06:11] LABS: HEMATOCRIT 27.7 % (42.0-52.0); HEMOGLOBIN 8.7 g/dl (14.0-18.0); MEAN CELL VOLUME 95.8 fl (80.0-94.0); MEAN CORPUSCULAR HGB 30.1 pg (27.0-31.0); MEAN CORPUSCULAR HGB CONC 31.4 g/dl (33.0-37.0); MEAN PLATELET VOLUME 9.5 fl (9.6-12.3); NUCLEATED RED BLOOD CELL 1.1 % (0.0-0.0); PLATELET COUNT AUTOMATED 162 10*3/uL (130-400); RED BLOOD COUNT 2.89 10*6/uL (4.50-5.90); RED CELL DISTRI WIDTH 18.6 % (0-14.5); WHITE BLOOD COUNT 3.7 10*3/uL (4.8-10.8)
[2016-10-04 06:50] LABS: ATYPICAL LYMPHS 1 % (0-0); LYMPHOCYTE # 0.6 10*3/uL (1.3-4.4); METAMYELOCYTES 1 % (0-0); MONOCYTE # 0.2 10*3/uL (0.1-1.0); MYELOCYTES 2 % (0-0); NEUTROPHIL # 2.8 10*3/uL (2.3-7.9); NEUTROPHILS 77 % (47-73); TOTAL CELLS COUNTED 100 #CELLS
[2016-10-04 06:51] LABS: PLATELET SUFFICIENCY NORMAL (NORMAL); POLYCHROMASIA SLIGHT; ROULEAUX SLIGHT; TOXIC GRANULATION SLIGHT
[2016-10-04 08:00] VITALS: BP 137/65
[2016-10-04 12:00] VITALS: BP 124/61
[2016-10-04 13:03] LABS: ACID FAST SPEC PROCESSING Concentration (.)
[2016-10-04 16:00] VITALS: BP 115/63
[2016-10-04 20:00] VITALS: BP 116/66
[2016-10-05] VITALS: BP 125/60
[2016-10-05 06:10] LABS: HEMATOCRIT 28.6 % (42.0-52.0); HEMOGLOBIN 9.1 g/dl (14.0-18.0); MEAN CELL VOLUME 97.3 fl (80.0-94.0); MEAN CORPUSCULAR HGB CONC 31.8 g/dl (33.0-37.0); MEAN PLATELET VOLUME 9.6 fl (9.6-12.3); NUCLEATED RED BLOOD CELL 0.7 % (0.0-0.0); PLATELET COUNT AUTOMATED 175 10*3/uL (130-400); RED BLOOD COUNT 2.94 10*6/uL (4.50-5.90); RED CELL DISTRI WIDTH 18.4 % (0-14.5); WHITE BLOOD COUNT 4.2 10*3/uL (4.8-10.8)
[2016-10-05 06:34] LABS: LYMPHOCYTE # 0.2 10*3/uL (1.3-4.4); METAMYELOCYTES 1 % (0-0); MONOCYTE # 0.1 10*3/uL (0.1-1.0); MYELOCYTES 1 % (0-0); NEUTROPHIL # 3.8 10*3/uL (2.3-7.9); NEUTROPHILS 91 % (47-73); TOTAL CELLS COUNTED 100 #CELLS
[2016-10-05 06:35] LABS: POLYCHROMASIA SLIGHT; TOXIC GRANULATION SLIGHT
[2016-10-05 06:36] LABS: PLATELET SUFFICIENCY NORMAL (NORMAL)
[2016-10-05 06:38] LABS: ALBUMIN 2.3 gm/dl (3.1-4.5); BUN 19 mg/dl (7-24); CARBON DIOXIDE 35 mmol/L (21-32); CHLORIDE 98 mmol/L (98-107); EST GLOM FILT AFRICAN AMERICAN > 60 ml/min; GLUCOSE 206 mg/dL (65-99); POTASSIUM 4.3 mmol/L (3.5-5.1); SGOT/AST 19 IU/L (3-35); SGPT/ALT 63 U/L (12-78); SODIUM 138 mmol/L (136-145)
[2016-10-05 06:39] LABS: ALKALINE PHOSPHATASE 148 U/L (45-117); BILIRUBIN, TOTAL 0.3 mg/dl (0.2-1.0); TOTAL PROTEIN 5.6 gm/dL (6.4-8.2)
[2016-10-05 08:00] VITALS: BP 125/65
[2016-10-05 12:00] VITALS: BP 133/65
[2016-10-05 16:00] VITALS: BP 121/66
[2016-10-05 20:00] VITALS: BP 119/60
[2016-10-06] VITALS: BP 123/68
[2016-10-06 08:00] VITALS: BP 121/66
[2016-10-06 09:34] LABS: HEMATOCRIT 29.9 % (42.0-52.0); HEMOGLOBIN 9.4 g/dl (14.0-18.0); MEAN CELL VOLUME 97.7 fl (80.0-94.0); MEAN CORPUSCULAR HGB 30.7 pg (27.0-31.0); MEAN CORPUSCULAR HGB CONC 31.4 g/dl (33.0-37.0); MEAN PLATELET VOLUME 9.5 fl (9.6-12.3); NUCLEATED RED BLOOD CELL 0.5 % (0.0-0.0); PLATELET COUNT AUTOMATED 201 10*3/uL (130-400); RED BLOOD COUNT 3.06 10*6/uL (4.50-5.90); RED CELL DISTRI WIDTH 18.7 % (0-14.5); WHITE BLOOD COUNT 6.5 10*3/uL (4.8-10.8)
[2016-10-06 09:49] LABS: ALBUMIN 2.5 gm/dl (3.1-4.5); ALKALINE PHOSPHATASE 141 U/L (45-117); BILIRUBIN, TOTAL 0.3 mg/dl (0.2-1.0); BUN 16 mg/dl (7-24); CARBON DIOXIDE 36 mmol/L (21-32); CHLORIDE 97 mmol/L (98-107); EST GLOM FILT AFRICAN AMERICAN > 60 ml/min; GLUCOSE 161 mg/dL (65-99); MAGNESIUM 2.4 mg/dL (1.5-2.1); PHOSPHOROUS 2.6 mg/dL (2.5-4.9); POTASSIUM 4.6 mmol/L (3.5-5.1); SGOT/AST 20 IU/L (3-35); SGPT/ALT 71 U/L (12-78); SODIUM 140 mmol/L (136-145); TOTAL PROTEIN 5.9 gm/dL (6.4-8.2)
[2016-10-06 10:21] LABS: LYMPHOCYTE # 0.5 10*3/uL (1.3-4.4); METAMYELOCYTES 4 % (0-0); MONOCYTE # 0.1 10*3/uL (0.1-1.0); MYELOCYTES 2 % (0-0); NEUTROPHIL # 5.5 10*3/uL (2.3-7.9); NEUTROPHILS 84 % (47-73); PLATELET SUFFICIENCY NORMAL (NORMAL); TOTAL CELLS COUNTED 100 #CELLS; TOXIC GRANULATION SLIGHT
[2016-10-06 10:22] LABS: OVALOCYTES FEW
[2016-10-06 12:00] VITALS: BP 125/62
[2016-10-06 16:00] VITALS: BP 97/53
[2016-10-06 20:00] VITALS: BP 96/53
[2016-10-07] VITALS: BP 109/52
[2016-10-07 05:59] LABS: ALBUMIN 2.4 gm/dl (3.1-4.5); ALKALINE PHOSPHATASE 127 U/L (45-117); BILIRUBIN, TOTAL 0.3 mg/dl (0.2-1.0); BUN 20 mg/dl (7-24); CARBON DIOXIDE 37 mmol/L (21-32); CHLORIDE 97 mmol/L (98-107); EST GLOM FILT AFRICAN AMERICAN > 60 ml/min; GLUCOSE 209 mg/dL (65-99); MAGNESIUM 2.2 mg/dL (1.5-2.1); PHOSPHOROUS 3.7 mg/dL (2.5-4.9); POTASSIUM 4.7 mmol/L (3.5-5.1); SGOT/AST 20 IU/L (3-35); SGPT/ALT 66 U/L (12-78); SODIUM 140 mmol/L (136-145); TOTAL PROTEIN 5.6 gm/dL (6.4-8.2)
[2016-10-07 06:00] LABS: HEMOGLOBIN 9.4 g/dl (14.0-18.0); MEAN CELL VOLUME 98.7 fl (80.0-94.0); MEAN CORPUSCULAR HGB 30.9 pg (27.0-31.0); MEAN CORPUSCULAR HGB CONC 31.3 g/dl (33.0-37.0); MEAN PLATELET VOLUME 10.1 fl (9.6-12.3); NUCLEATED RED BLOOD CELL 0.3 % (0.0-0.0); PLATELET COUNT AUTOMATED 225 10*3/uL (130-400); RED BLOOD COUNT 3.04 10*6/uL (4.50-5.90); RED CELL DISTRI WIDTH 18.9 % (0-14.5); WHITE BLOOD COUNT 6.5 10*3/uL (4.8-10.8)
[2016-10-07 06:59] LABS: ATYPICAL LYMPHS 1 % (0-0); LYMPHOCYTE # 0.3 10*3/uL (1.3-4.4); METAMYELOCYTES 1 % (0-0); MONOCYTE # 0.2 10*3/uL (0.1-1.0); NEUTROPHIL # 5.9 10*3/uL (2.3-7.9); NEUTROPHILS 91 % (47-73); PLATELET SUFFICIENCY NORMAL (NORMAL); POLYCHROMASIA SLIGHT; TOTAL CELLS COUNTED 100 #CELLS
[2016-10-07 08:00] VITALS: BP 112/63; BP 122/60
[2016-10-07 12:00] VITALS: BP 115/64
[2016-10-07 16:00] VITALS: BP 123/84
[2016-10-07 20:00] VITALS: BP 109/61
[2016-10-08] VITALS: BP 108/54
[2016-10-08 05:47] LABS: HEMATOCRIT 33.2 % (42.0-52.0); HEMOGLOBIN 10.3 g/dl (14.0-18.0); MEAN CELL VOLUME 99.4 fl (80.0-94.0); MEAN CORPUSCULAR HGB 30.8 pg (27.0-31.0); MEAN PLATELET VOLUME 10.1 fl (9.6-12.3); NUCLEATED RED BLOOD CELL 0.2 % (0.0-0.0); PLATELET COUNT AUTOMATED 267 10*3/uL (130-400); RED BLOOD COUNT 3.34 10*6/uL (4.50-5.90); RED CELL DISTRI WIDTH 18.9 % (0-14.5)
[2016-10-08 05:59] LABS: BUN 19 mg/dl (7-24); CARBON DIOXIDE 36 mmol/L (21-32); CHLORIDE 95 mmol/L (98-107); EST GLOM FILT AFRICAN AMERICAN > 60 ml/min; GLUCOSE 187 mg/dL (65-99); POTASSIUM 4.6 mmol/L (3.5-5.1); SODIUM 139 mmol/L (136-145)
[2016-10-08 06:37] LABS: LYMPHOCYTE # 0.9 10*3/uL (1.3-4.4); MONOCYTE # 0.2 10*3/uL (0.1-1.0); MYELOCYTES 3 % (0-0); NEUTROPHIL # 8.6 10*3/uL (2.3-7.9); NEUTROPHILS 86 % (47-73); TOTAL CELLS COUNTED 100 #CELLS
[2016-10-08 06:38] LABS: PLATELET SUFFICIENCY NORMAL (NORMAL); ROULEAUX SLIGHT; TOXIC GRANULATION SLIGHT
[2016-10-08 08:00] VITALS: BP 116/58
[2016-10-08 12:00] VITALS: BP 104/66
[2016-10-08 12:58] LABS: ABG BASE EXCESS 7.4 mmol/L (-2.0-2.0); ABG CO2 CONTENT 33.5 mmol/L (23-27); ABG TEMPERATURE 97.7 F (98.0-99.0); ARTERIAL BLOOD GAS PH 7.449 (7.35-7.45); ARTERIAL BLOOD GAS PO2 87.9 mmHg (80-90)
[2016-10-08 16:00] VITALS: BP 109/54
[2016-10-08 20:00] VITALS: BP 106/52
[2016-10-09] VITALS: BP 124/67
[2016-10-09 06:13] LABS: HEMATOCRIT 32.9 % (42.0-52.0); HEMOGLOBIN 10.2 g/dl (14.0-18.0); MEAN CELL VOLUME 99.4 fl (80.0-94.0); MEAN CORPUSCULAR HGB 30.8 pg (27.0-31.0); MEAN PLATELET VOLUME 9.9 fl (9.6-12.3); PLATELET COUNT AUTOMATED 309 10*3/uL (130-400); RED BLOOD COUNT 3.31 10*6/uL (4.50-5.90); WHITE BLOOD COUNT 10.2 10*3/uL (4.8-10.8)
[2016-10-09 06:28] LABS: ALBUMIN 2.6 gm/dl (3.1-4.5); BUN 22 mg/dl (7-24); CARBON DIOXIDE 34 mmol/L (21-32); CHLORIDE 96 mmol/L (98-107); GLUCOSE 233 mg/dL (65-99); MAGNESIUM 2.1 mg/dL (1.5-2.1); POTASSIUM 4.7 mmol/L (3.5-5.1); SODIUM 139 mmol/L (136-145)
[2016-10-09 06:33] LABS: ALKALINE PHOSPHATASE 129 U/L (45-117); BILIRUBIN, TOTAL 0.4 mg/dl (0.2-1.0); EST GLOM FILT AFRICAN AMERICAN > 60 ml/min; SGOT/AST 17 IU/L (3-35); SGPT/ALT 60 U/L (12-78); TOTAL PROTEIN 6.2 gm/dL (6.4-8.2)
[2016-10-09 06:49] LABS: LYMPHOCYTE # 0.3 10*3/uL (1.3-4.4); MONOCYTE # 0.1 10*3/uL (0.1-1.0); MYELOCYTES 1 % (0-0); NEUTROPHIL # 9.7 10*3/uL (2.3-7.9); NEUTROPHILS 95 % (47-73); PLATELET SUFFICIENCY NORMAL (NORMAL); POLYCHROMASIA SLIGHT; TOTAL CELLS COUNTED 100 #CELLS; TOXIC GRANULATION SLIGHT
[2016-10-09 08:00] VITALS: BP 138/78
[2016-10-09] MEDS ORDERED: VANCOMYCIN HCL1 GM IV (08:13)
[2016-10-09 12:00] VITALS: BP 115/62
[2016-10-09] MEDS ORDERED: MIRALAX POWDER17 G1 PO (13:41)
[2016-10-09] MEDS ORDERED: REMEDY CALAZIM113 GM T (13:41)
[2016-10-09] MEDS ORDERED: MUCINEX ER600 MG PO (13:41)
[2016-10-09] MEDS ORDERED: PREDNISONE10 MG PO (13:41)
[2016-10-09] MEDS ORDERED: LOPRESSOR25 MG PO (13:51)
== END 2016-10-09 20:30 | disposition home health service (06) | DRG 871 ==
LOC: ED 11:19 → 4E 13:27 → EDHOLD 13:27 → 4E 13:33
PROVIDERS: Emergency Medicine; Family Medicine Adult Medicine; Internal Medicine; Internal Medicine Critical Care Medicine
PROC: 30233N1 Transfusion of Nonautologous Red Blood Cells into Peripheral Vein, Percutaneous Approach (ICD-10-PCS; 2016-09-30)
PROC: 0BB78ZX Excision of Left Main Bronchus, Via Natural or Artificial Opening Endoscopic, Diagnostic (ICD-10-PCS; 2016-10-03)
PROC: 0BB88ZX Excision of Left Upper Lobe Bronchus, Via Natural or Artificial Opening Endoscopic, Diagnostic (ICD-10-PCS; 2016-10-03)
PROC: 0BB98ZX Excision of Lingula Bronchus, Via Natural or Artificial Opening Endoscopic, Diagnostic (ICD-10-PCS; 2016-10-03)
PROC: 0BB48ZX Excision of Right Upper Lobe Bronchus, Via Natural or Artificial Opening Endoscopic, Diagnostic (ICD-10-PCS; 2016-10-03)
PROC: 0BB68ZX Excision of Right Lower Lobe Bronchus, Via Natural or Artificial Opening Endoscopic, Diagnostic (ICD-10-PCS; 2016-10-03)
PROC: 0BB38ZX Excision of Right Main Bronchus, Via Natural or Artificial Opening Endoscopic, Diagnostic (ICD-10-PCS; 2016-10-03)
PROC: 0BB58ZX Excision of Right Middle Lobe Bronchus, Via Natural or Artificial Opening Endoscopic, Diagnostic (ICD-10-PCS; 2016-10-03)
PROC: 0BBB8ZX Excision of Left Lower Lobe Bronchus, Via Natural or Artificial Opening Endoscopic, Diagnostic (ICD-10-PCS; 2016-10-03)
PROC: 0BB18ZX Excision of Trachea, Via Natural or Artificial Opening Endoscopic, Diagnostic (ICD-10-PCS; 2016-10-03)
PROC: 02HV33Z Insertion of Infusion Device into Superior Vena Cava, Percutaneous Approach (ICD-10-PCS; principal; 2016-10-09)
DX: A41.9 Sepsis, unspecified organism (principal); J96.21 Acute and chronic respiratory failure with hypoxia; E43 Unspecified severe protein-calorie malnutrition; L89.151 Pressure ulcer of sacral region, stage 1; I47.2 Ventricular tachycardia; T17.890A Other foreign object in other parts of respiratory tract causing asphyxiation, initial encounter; J18.9 Pneumonia, unspecified organism; B37.0 Candidal stomatitis; I48.0 Paroxysmal atrial fibrillation; J44.1 Chronic obstructive pulmonary disease with (acute) exacerbation; J44.0 Chronic obstructive pulmonary disease with (acute) lower respiratory infection; Z68.1 Body mass index [BMI] 19.9 or less, adult; K21.9 Gastro-esophageal reflux disease without esophagitis; E78.5 Hyperlipidemia, unspecified; E03.9 Hypothyroidism, unspecified; R74.0 Nonspecific elevation of levels of transaminase and lactic acid dehydrogenase [LDH]; D53.9 Nutritional anemia, unspecified; R73.9 Hyperglycemia, unspecified; E83.41 Hypermagnesemia; K59.03 Drug induced constipation; R65.20 Severe sepsis without septic shock; B96.5 Pseudomonas (aeruginosa) (mallei) (pseudomallei) as the cause of diseases classified elsewhere; B95.62 Methicillin resistant Staphylococcus aureus infection as the cause of diseases classified elsewhere; J20.9 Acute bronchitis, unspecified; G89.29 Other chronic pain; M54.5 Low back pain; Z87.891 Personal history of nicotine dependence; Z79.82 Long term (current) use of aspirin; Z86.14 Personal history of Methicillin resistant Staphylococcus aureus infection; Z79.899 Other long term (current) drug therapy; Z85.46 Personal history of malignant neoplasm of prostate; Z87.01 Personal history of pneumonia (recurrent); Z85.51 Personal history of malignant neoplasm of bladder; Z82.49 Family history of ischemic heart disease and other diseases of the circulatory system; Z83.3 Family history of diabetes mellitus; Z80.1 Family history of malignant neoplasm of trachea, bronchus and lung; X58.XXXA Exposure to other specified factors, initial encounter; Y93.89 Activity, other specified; Y92.89 Other specified places as the place of occurrence of the external cause; Y99.8 Other external cause status; N40.0 Benign prostatic hyperplasia without lower urinary tract symptoms

== ENCOUNTER → 2016-10-23 | Outpatient (CLI) | payer MEDICARE, OTHER ==
[~2016-10-23] MED LIST changes: +ASPIRIN81 M1 PO; +CALCIUM500 M1 PO; +CARDIZEM30 MG PO; +COLACE100 MG PO; +Carafate1 GM PO; +DALIRESP500 MC1 PO; +DURAGESIC 100100 MCG TD; +Ipratropium Brom3 ML INH; +LOPRESSOR25 MG PO; +MARINOL5 MG PO; +MIRALAX POWDER17 G1 PO; +MIRALAX17 GM PO; +MUCINEX ER600 MG PO; +MULTIVITAMINS1 EACH PO; +PHOSPHA 250 NEU1 TAB PO; +PLAVIX75 M1 PO; +PROCHLORPERAZIN10 MG PO; +REMEDY CALAZIM113 GM T; +SPIRIVA RESPIMAT4 GM INH; +VANCOMYCIN HCL1 GM IV; +VITAMIN D31000 IU PO
== END | disposition home or self-care (01) ==
LOC: RAD 14:12
DX: M79.671 Pain in right foot (principal); R23.3 Spontaneous ecchymoses; M79.89 Other specified soft tissue disorders; W19.XXXA Unspecified fall, initial encounter; Y93.89 Activity, other specified; Y92.89 Other specified places as the place of occurrence of the external cause; Y99.8 Other external cause status

== ENCOUNTER 2016-11-01 13:12 | Inpatient (IN) | payer MEDICARE, OTHER ==
[2016-11-01] VITALS (8 sets, daily range): BP systolic 60–114; BP diastolic 0–54
[~2016-11-01] VITALS: Ht 170.1 cm; Wt 61.2 kg
--- NOTE | ~2016-11-01 | EKG ---
[place], [place] ELECTROCARDIOGRAM REPORT NAME: SUJEY ZAMBRANO SR UNIT #: [id number] ROOM: 409 DOCTOR: ANDRÉS RIVERA MD BIRTHDATE: [birth year] DOS: 11/01/2016 TIME: 1325 hours. Sinus tachycardia with multifocal PACs, rate 150 beats per minute. Rare PVCs and perhaps badly conducted QR complexes are seen. An abnormal ECG. No previous tracing is available for comparison. ANDRÉS RIVERA MD CM:EKGRPT:ELECTROCARDIOGRAM REPORT [id number] ANDRÉS RIVERA MD
[2016-11-01 13:40] LABS: HEMATOCRIT 29.6 % (42.0-52.0); HEMOGLOBIN 9.4 g/dl (14.0-18.0); MEAN CELL VOLUME 96.1 fl (80.0-94.0); MEAN CORPUSCULAR HGB 30.5 pg (27.0-31.0); MEAN CORPUSCULAR HGB CONC 31.8 g/dl (33.0-37.0); MEAN PLATELET VOLUME 10.3 fl (9.6-12.3); RED BLOOD COUNT 3.08 10*6/uL (4.50-5.90); RED CELL DISTRI WIDTH 18.4 % (0-14.5)
[2016-11-01 13:46] LABS: INTERNATIONAL NORM RATIO 1.1 (2.0-3.5); PROTHROMBIN TIME 11.2 SECONDS (9.0-12.4)
[2016-11-01 13:57] LABS: ALKALINE PHOSPHATASE 139 U/L (45-117); BILIRUBIN, TOTAL 0.7 mg/dl (0.2-1.0); BUN 25 mg/dl (7-24); CARBON DIOXIDE 30 mmol/L (21-32); CHLORIDE 97 mmol/L (98-107); EST GLOM FILT AFRICAN AMERICAN > 60 ml/min; GLUCOSE 172 mg/dL (65-99); MAGNESIUM 1.8 mg/dL (1.5-2.1); SGOT/AST 21 IU/L (3-35); SGPT/ALT 41 U/L (12-78); SODIUM 137 mmol/L (136-145); TOTAL PROTEIN 6.5 gm/dL (6.4-8.2)
[2016-11-01 13:58] LABS: LYMPHOCYTE # 0.2 10*3/uL (1.3-4.4); NEUTROPHIL # 0.1 10*3/uL (2.3-7.9); NEUTROPHILS 32 % (47-73); TOTAL CELLS COUNTED 25 #CELLS; TROPONIN I < 0.015 ng/ml (<0.045)
[2016-11-01 13:59] LABS: PLATELET SUFFICIENCY LOW (NORMAL); POLYCHROMASIA SLIGHT
[2016-11-01 14:01] LABS: PLATELET COUNT AUTOMATED 22 10*3/uL (130-400); WHITE BLOOD COUNT 0.3 10*3/uL (4.8-10.8)
[2016-11-01 14:53] LABS: C-REACTIVE PROTEIN 25.4 MG/DL (0-0.3)
[2016-11-01 15:11] LABS: BILIRUBIN 1+ (NEGATIVE); BLOOD 3+ (NEGATIVE); CLARITY CLOUDY (CLEAR); COLOR YELLOW (YELLOW); GLUCOSE NEGATIVE (NEGATIVE); KETONE NEGATIVE (NEGATIVE); LEUKO ESTERASE NEGATIVE (NEGATIVE); NITRITE NEGATIVE (NEGATIVE); PROTEIN 2+ (NEGATIVE); UROBILINOGEN 0.2 E.U./dl (0.2-1.0)
[2016-11-01 15:21] LABS: RBC TNTC rbc/hpf (0-2); URINE REFLEX COMMENT YES (NO)
[2016-11-01 16:25] LABS: LA>2 REFLEX 2 HR DRAW NOW
== END 2016-11-02 01:49 | disposition expired | DRG 871 ==
LOC: ED 13:12 → EDHOLD 18:21 → 4E 18:29
PROVIDERS: Emergency Medicine
PROC: 30233R1 Transfusion of Nonautologous Platelets into Peripheral Vein, Percutaneous Approach (ICD-10-PCS; principal; 2016-11-01)
DX: A41.9 Sepsis, unspecified organism (principal); J18.9 Pneumonia, unspecified organism; J96.01 Acute respiratory failure with hypoxia; E43 Unspecified severe protein-calorie malnutrition; D61.818 Other pancytopenia; L89.159 Pressure ulcer of sacral region, unspecified stage; C78.89 Secondary malignant neoplasm of other digestive organs; C79.51 Secondary malignant neoplasm of bone; C79.82 Secondary malignant neoplasm of genital organs; E87.8 Other disorders of electrolyte and fluid balance, not elsewhere classified; R65.20 Severe sepsis without septic shock; Z66 Do not resuscitate; Z51.5 Encounter for palliative care; C67.9 Malignant neoplasm of bladder, unspecified; R73.9 Hyperglycemia, unspecified; R31.9 Hematuria, unspecified; N40.1 Benign prostatic hyperplasia with lower urinary tract symptoms; M54.42 Lumbago with sciatica, left side; M54.41 Lumbago with sciatica, right side; E03.9 Hypothyroidism, unspecified; G89.29 Other chronic pain; E78.5 Hyperlipidemia, unspecified; J44.9 Chronic obstructive pulmonary disease, unspecified; K21.9 Gastro-esophageal reflux disease without esophagitis; I48.2 Chronic atrial fibrillation; Z79.1 Long term (current) use of non-steroidal anti-inflammatories (NSAID); Z79.899 Other long term (current) drug therapy; Z87.891 Personal history of nicotine dependence; Z82.49 Family history of ischemic heart disease and other diseases of the circulatory system; Z83.3 Family history of diabetes mellitus; Z80.1 Family history of malignant neoplasm of trachea, bronchus and lung; Z79.51 Long term (current) use of inhaled steroids; Z79.82 Long term (current) use of aspirin; Z68.21 Body mass index [BMI] 21.0-21.9, adult